=== PATIENT | female | born 1945 | race Caucasian/White ===

== ENCOUNTER 2018-05-30 22:36 | Inpatient (IN) | payer OTHER, MEDICARE ==
[~2018-05-30] VITALS: Ht 162.6 cm; Wt 108.9 kg
[~2018-05-30 22:36] MED LIST: ATORVASTATIN CA40 M1 PO; CLONAZEPAM0.5 M2 PO; CLOPIDOGREL75 M1 PO; ESCITALOPRAM OXA5 MG PO; FENTANYL1 EAC3 TOP; HYDROCODON-ACE1 EAC3 PO; IBUPROFEN600 M1 PO; LEVOTHYROXINE100 MC1 PO; LIDOCAINE1 EACH TOP; METOPROLOL SUCC25 M1 PO; MOBIC15 M1 PO; MUPIROCIN22 GM TOP; NEXIUM40 M1 PO; PAMELOR50 M1 PO; ROBITUSSIN COU237 M1 PO; TOPIRAMATE100 M2 PO; ZITHROMAX250 M2 PO
--- NOTE | 2018-05-30 22:44 | ED MVC/FALL/TRAUMA COMPLAINT ---
History of Present Illness General Chief Complaint: Altered Mental Status Stated Complaint: BIBA AMS ?FALL ?SEIZURE Source: patient Exam Limitations: clinical condition, confusion Vital Signs & Intake/Output Vital Signs & Intake/Output Vital Signs Date Time Temp Pulse Resp B/P B/P Pulse O2 O2 Flow FiO2 Mean Ox Delivery Rate 05/31 0506 98.5 88 22 155/67 98 05/31 0125 99.0 83 20 144/78 96 Room Air 05/30 2315 Room Air 05/30 2239 99.6 96 20 139/82 97 Room Air ED Intake and Output 05/31 0000 05/30 1200 Intake Total Output Total 500 Balance -500 Output, Urine 500 Allergies Coded Allergies: Gadolinium-Containing Contrast Medi (Severe, CONTRAST DYE - ANAPHYLAXIS 02/21/18 ) Iodinated Contrast- Oral and IV Dye (Severe, CONTRAST DYE - ANAPHYLAXIS 02/21/18 ) Penicillins (Severe, ANAPHYLAXIS 04/02/16) Uncoded Allergies: CONTRAST DYE (Severe, ANAPHYLAXIS 04/02/16) Reconcile Medications Atorvastatin Calcium 40 MG TABLET 1 TAB PO DAILY CHOLESTEROL (Reported) Azithromycin (Zithromax) 250 MG TABLET 1 TAB PO DAILY bronchitis Clonazepam 0.5 MG TABLET 1 TAB PO BID ANXIETY (Reported) Clopidogrel Bisulfate (Clopidogrel) 75 MG TABLET 1 TAB PO DAILY BLOOD THINNER (Reported) Escitalopram Oxalate 5 MG TABLET 1 TAB PO DAILY MENTAL HEALTH (Reported) Esomeprazole (Nexium) 40 MG CAPSULE.DR 1 CAP PO DAILY GI (Reported) Fentanyl 50 MCG/HOUR PATCH.TD72 1 PAT TOP Q3D PAIN (Reported) Guaifenesin/Dextromethorphan (Robitussin Cough-Chest Dm Liq) 100 MG-5 MG/5 ML LIQUID 5-10 ML PO Q6P PRN cough Hydrocodone/Acetaminophen (Hydrocodon-Acetaminoph 7.5-325) 7.5 MG-325 MG TABLET 1 TAB PO 4 TIMES/DAY PAIN (Reported) Ibuprofen 600 MG TABLET 1 TAB PO Q6PRN PRN pain with food Levothyroxine Sodium 100 MCG TABLET 1 TAB PO DAILY AC THYROID (Reported) Lidocaine 5 % ADH..PATCH 1 PAT TOP DAILY PAIN (Reported) Metoprolol Succinate 25 MG TAB 1 TAB PO DAILY HEART (Reported) Mupirocin 2 % OINT...G. 1 KEVIN TOP TID UNKNOWN (Reported) apply to affected area(s) Nortriptyline HCl (Pamelor) 50 MG CAPSULE 2 CAP PO QPM UNKNOWN (Reported) Topiramate 100 MG TABLET 1 TAB PO BID MENTAL HEALTH (Reported) Triage Nurses Notes Reviewed? yes Onset: Abrupt Duration: hour(s): Timing: single episode today Severity: moderate Injuries/Fall Location: head, upper extremity, pelvis, lower extremity Method of Injury: fall Loss of Consciousness: unsure Modifying Factors: Improves With: rest. Associated Symptoms: confusion HPI: 72 YO WOMAN presents after a fall. She shares that she was walking from her room to the bathroom and fell. She was unable to get up. She does not recall how long she was on the ground. She believes she passed out. She pressed her emergency response button. The medics arrived and determined that was likely on the ground for approximately 3 hours. She notes pain in her right shoulder, right hip, both knees. She notes no chest pain, shortness of breath, diarrhea, dyspnea. She is otherwise well. Past History Medical History Any Pertinent Medical History? see below for history Neurological: migraine EENT: NONE Cardiovascular: hypertension Respiratory: NONE Gastrointestinal: NONE Hepatic: NONE Renal: NONE Musculoskeletal: disk herniation, spinal stenosis Psychiatric: NONE Endocrine: HYPOTHYROID Blood Disorders: NONE Cancer(s): NONE GENERAL CLAIMS AGENT/Reproductive: NONE Surgical History Surgical History: non-contributory Psychosocial History What is your primary language Bangladeshi Family History Hx Contributory? No Review of Systems Review of Systems Constitutional: Reports: no symptoms. Eyes: Reports: no symptoms. Ears, Nose, Throat, Mouth: Reports: no symptoms. Respiratory: Reports: no symptoms. Cardiovascular: Reports: no symptoms. Gastrointestinal/Abdominal: Reports: no symptoms. Genitourinary: Reports: no symptoms. Musculoskeletal: Reports: no symptoms. Skin: Reports: no symptoms. Neurological/Psychological: Reports: no symptoms. All Other Systems: Reviewed and Negative Physical Exam Physical Exam General Appearance: well developed/nourished, mild distress Head: atraumatic, normal appearance Eyes: Bilateral: normal appearance, PERRL, EOMI. Ears, Nose, Throat, Mouth: dry mucosa Neck: normal inspection, supple, paraspinous muscle tender, no midline tenderness Respiratory: normal breath sounds, chest non-tender, no respiratory distress, quiet respiration, lungs clear Cardiovascular: regular rate/rhythm Gastrointestinal: normal bowel sounds, soft, non-tender Back: normal inspection, no vertebral tenderness Extremities: right shoulder ecchymosis with diffuse tenderness, right hip with ecchymosis, no deformity. diffuse tenderness to palpation. normal ROM, bilateral knees with ecchymosis. mild tenderness to palpation Neurologic/Psych: axox 2... does not know date or president Skin: intact, normal color, warm/dry Core Measures ACS in differential dx? No CVA/TIA Diagnosis No Sepsis Present: No Sepsis Focused Exam Completed? No Progress Differential Diagnosis: C/T/L spine injury, ICH, pelvis injury Plan of Care: Orders Procedure Date/time Status Heart Healthy Diet 05/31 B Active Weight 05/31 0623 Active Vital Signs 05/31 0623 Active Teach/Educate 05/31 06 Active Pain Treatment and Response 05/31 0623 Active Nutritional Intake, Monitor 05/31 0623 Active Isolation 05/31 0623 Active Intake & Output 05/31 0623 Active Patient Care Conference 05/31 0623 Active Activity/Ambulation 05/31 0623 Active Pathway - chart 05/31 0602 Active House Staff 05/31 0602 Active Patient Data 05/31 0602 Active Patient Data 05/31 0528 Active Patient Data 05/31 0458 Active Saline Lock 05/31 0451 Active Misc Message 05/31 0451 Active ED Holding Orders 05/31 0451 Active Admit to inpatient 05/31 0451 Active Vital Signs 05/31 0451 Active Code Status 05/31 0451 Active Straight Cath 05/31 0100 Active Add-on Test (ER Only) 05/31 0050 Active Lab Add-on Test 05/31 UNK Active VTE Mechanical Prophylaxis 05/31 UNK Active Telemetry/Occupational Health Nurse Manager 05/31 UNK Active Intake & Output 05/30 2254 Active URINE DRUGS OF ABUSE 05/30 2254 Complete TOTAL IRON BINDING CAPACITY 05/30 2253 Active PROLACTIN 05/30 2253 Active FOLIC ACID 05/30 2253 Active FERRITIN 05/30 2253 Active SERUM IRON 05/30 2253 Active ETHANOL 05/30 2253 Active VITAMIN B12 05/30 2253 Active URINALYSIS 05/306 Complete TROPONIN LEVEL 05/30 2246 Active LIPASE 05/30 2246 Active HEPATIC FUNCTION PANEL 05/30 2246 Active CREATINE PHOSPHOKINASE 05/30 2246 Active CBC WITHOUT DIFFERENTIAL 05/30 2246 Complete BASIC METABOLIC PANEL 05/30 2246 Active AMYLASE 05/30 2246 Active EKG 05/30 2246 Active Current Medications Sig/Pete Start time Last Medication Dose Stop Time Status Admin Folic Acid 1 MG DAILY 05/31 0900 AC (Folic Acid) Sodium Chloride 1,000 ML Q10H 05/31 06 AC (Normal Saline 0.9%) Laboratory Tests 05/30/184: Urine Opiates Screen > 4000.00 H, Methadone Screen 99, Barbiturate Screen < 60, Ur Phencyclidine Scrn < 6.00, Amphetamines Screen 111, U Benzodiazepines Scrn 169, Urine Cocaine Screen < 50, Urine Cannabis Screen < 5.00, Urine Color YEL, Urine Clarity CLEAR, Urine pH 6.0, Ur Specific Stuart 1.020, Urine Protein NEG, Urine Ketones NEG, Urine Nitrite NEG, Urine Bilirubin NEG, Urine Urobilinogen 0.2, Ur Leukocyte Esterase MOD H, Ur Microscopic SEDIMENT EXAMINED, Urine RBC RARE, Urine WBC 10-15 H, Urine Bacteria MOD H, Hyaline Casts 5-10 H, Granular Casts RARE H, Urine Mucus FEW, Urine Hemoglobin TRACE-INTACT, Urine Glucose NEG 05/30/182252: Anion Gap 9, Estimated GFR 21 L, BUN/Creatinine Ratio 11.7, Glucose 102 H, Calcium 8.6, Iron Pending, TIBC Pending, Ferritin Pending, Total Bilirubin 0.2, Direct Bilirubin 0.2, AST 53 H, ALT 33, Alkaline Phosphatase 112, Creatine Kinase 1079 H, Troponin I < 0.01, Total Protein 5.9 L, Albumin 2.9 L, Amylase < 30 L, Lipase 168, Vitamin B12 Pending, Folate Pending, Prolactin 12.5, CBC w Diff NO MAN DIFF REQ, RBC 3.72 L, MCV 90.0, MCH 29.5, MCHC 32.8 L, RDW 13.3, MPV 7.2 L, Gran % 83.7 H, Lymphocytes % 7.8 L, Monocytes % 7.9, Eosinophils % 0.3, Basophils % 0.3, Absolute Granulocytes 7.5 H, Absolute Lymphocytes 0.7 L, Absolute Monocytes 0.7 H, Absolute Eosinophils 0, Absolute Basophils 0, Serum Alcohol < 10.0 05/30/182247: Prolactin Cancelled Diagnostic Imaging: Viewed by Me: Radiology Read, CT Scan. Discussed w/RAD: Radiology Read, CT Scan. Radiology Impression: PATIENT: CRYSTAL ESCOBAR PRESENT AGE: 72 PATIENT ACCOUNT NO: [id number] : 47 LOCATION: ER ORDERING PHYSICIAN: Casey Umanzor MD SERVICE DATE: 05/30/18 EXAM TYPE: CAT - CT CERV SPINE WO IV CONTRAST; CT HEAD WO IV CONTRAST EXAMINATIONS: CT HEAD WITHOUT CONTRAST AND CT CERVICAL SPINE WITHOUT CONTRAST CLINICAL INFORMATION: Pain after fall. Trauma. COMPARISON: None. TECHNIQUE: Contiguous helical images of the brain were obtained without IV contrast. Contiguous helical images of the cervical spine were obtained without IV contrast. Multiplanar reconstructions were performed. DLP: 909 mGy-cm. FINDINGS: There are no pathologic extra-axial fluid collections. The lateral, third, fourth ventricles are mildly prominent, though age-appropriate and concordant with the appearance of the sulci. There is no evidence for acute intraparenchymal hemorrhage or infarct. There is neither mass nor mass effect. There is no shift of midline structures. The paranasal sinuses and mastoid air cells are clear. There are no osseous lesions. The cervical vertebra are in normal alignment. There is disc height loss at C3/C4, C4/C5, C5/C6 and C6/C7 with anterior osteophyte formation. Disc heights and vertebral heights are otherwise well-preserved. There are no fractures. There is no prevertebral soft tissue swelling. There is no cervical lymphadenopathy. The visualized lung apices are clear. IMPRESSION: No evidence for acute intracranial injury. Age- appropriate appearance of the brain. No evidence for acute injury to the cervical spine. Moderate degenerative change within the cervical spine. DICTATED BY: Bhargav Man MD DATE/TIME DICTATED:05/30/182356 LEATHER COLORER: BEN DATE/TIME TRANSCRIBED:05/30/182356 CONFIDENTIAL, DO NOT COPY WITHOUT APPROPRIATE AUTHORIZATION. <Electronically signed in Other Vendor System> SIGNED BY: Bhargav Man MD 05/31/18 0118, PATIENT: CRYSTAL ESCOBAR PRESENT AGE: 72 PATIENT ACCOUNT NO: [id number] : 47 LOCATION: [facility] ORDERING PHYSICIAN: Casey Umanzor MD SERVICE DATE: 05/30/18 EXAM TYPE: CAT - CT ABD & PELVIS W/O IV CONTRAS; CT CHEST WO IV CONTRAST EXAMINATION: CT CHEST, ABDOMEN AND PELVIS WITHOUT CONTRAST CLINICAL INFORMATION: Pain after fall. Trauma. COMPARISON: None. TECHNIQUE: Contiguous axial thin section helical images of the chest, abdomen and pelvis were performed without oral or IV contrast. The data set was reformatted in the coronal and sagittal planes and reviewed on an independent workstation. DLP: 396 mGy-cm. FINDINGS: The heart is of normal size. There is no pericardial effusion. The pulmonary arteries are prominent measuring 2.7 cm in diameter on the left and 2.5 cm on the right. There is neither mediastinal, hilar nor axillary lymphadenopathy. There are no chest wall masses. Review of lung windows demonstrates that there are neither pleural effusions nor pneumothoraces. There is bronchial wall thickening noted most prominently within the right lower lobe. There is patchy nonspecific groundglass opacification within the posterior basal segment of the right lower lobe. Within the posterior basal segment of the left lower lobe, there is linear atelectasis or scarring. There are no consolidations. There are no pulmonary parenchymal nodules. The liver is of normal size and attenuation without focal lesions nor intrahepatic biliary ductal dilation. A normal gallbladder is identified. There is no wall thickening or discernible pericholecystic fluid. The spleen, pancreas, adrenal glands are unremarkable. Both kidneys are of normal size and attenuation without hydronephrosis. Within the interpole region of the right kidney, there is a 3 mm nonobstructive calculus. Within the lower pole, there is a 2 mm nonobstructive calculus. Within the lower pole of left kidney, there is a 2 mm nonobstructive calculus. There is no abdominal free fluid. There is neither mesenteric nor retroperitoneal lymphadenopathy. There is a dxpva-[id number] sized fat- containing umbilical hernia. There is a moderate amount of stool throughout the colon; otherwise, unremarkable unopacified loops of small and large bowel are identified. There is no pelvic free fluid. The urinary bladder is unremarkable. There is neither pelvic nor inguinal lymphadenopathy. Bone windows: Neither sclerotic nor lytic bone lesions are identified. Right hip prosthesis is intact. No acute fractures are identified. There are healed anterior left eighth and ninth rib fractures. There are bilateral L5 pars defects with grade 1-2 anterolisthesis of L5 in relation to S1. There is moderate disc height loss at L5/S1. There are chronic wedge-shaped compression fractures to T11 and L1. There is also disc height loss at L2/L3. IMPRESSION: No acute fractures. Chronic wedge -shaped thoracic and lumbar spine fractures. Old healed left rib fractures. Right lower lobe bronchial wall thickening and nonspecific posterior basal segment right lower lobe groundglass opacification. This could correspond to an infectious or inflammatory process. It is doubtful that this represents contusion. Recommendation is for a followup chest series to be obtained following treatment and/or resolution of symptoms to assure resolution of this appearance. Moderate amount of stool throughout the colon. Small fat-containing umbilical hernia. DICTATED BY: Bhargav Man MD DATE/TIME DICTATED:05/31/185 LEATHER COLORER:BEN DATE/TIME TRANSCRIBED:05/31/185 CONFIDENTIAL, DO NOT COPY WITHOUT APPROPRIATE AUTHORIZATION. <Electronically signed in Other Vendor System> SIGNED BY: Bhargav Man MD 05/31/18 0018, PATIENT: CRYSTAL ESCOBAR PRESENT AGE: 72 PATIENT ACCOUNT NO: [id number] : 47 LOCATION: [facility] ORDERING PHYSICIAN: Casey Umanzor MD SERVICE DATE: 05/31/18 EXAM TYPE: RAD - XRY-KNEE COMPLETE LEFT; XRY-KNEE COMPLETE RIGHT EXAMINATIONS: BILATERAL KNEES 2 VIEWS CLINICAL INFORMATION: Bilateral knee pain after fall. COMPARISON: None. TECHNIQUE: AP and lateral views of each knee were obtained. FINDINGS: There are no fractures or dislocations. There is no knee joint effusion. There is no significant soft tissue swelling. IMPRESSION: Unremarkable bilateral knee radiographs. DICTATED BY: Bhargav Man MD DATE/TIME DICTATED:05/31/18533 LEATHER COLORER:BEN DATE/TIME TRANSCRIBED:05/31/18533 CONFIDENTIAL, DO NOT COPY WITHOUT APPROPRIATE AUTHORIZATION. <Electronically signed in Other Vendor System> SIGNED BY: Bhargav Man MD 05/31/18 0538, PATIENT: CRYSTAL ESCOBAR PRESENT AGE: 72 PATIENT ACCOUNT NO: [id number] : 47 LOCATION: [facility] ORDERING PHYSICIAN: Casey Umanzor MD SERVICE DATE: 05/31/18 EXAM TYPE: RAD - XRY-HIP 4 VIEWS UNI, RIGHT EXAMINATION: RIGHT HIP 2 VIEWS CLINICAL INFORMATION: Right hip pain after fall. COMPARISON: None TECHNIQUE: AP neutral and frog-leg lateral views of the right hip are provided. FINDINGS: A right hip prosthesis is intact. There are no acute fractures. IMPRESSION: Intact right hip prosthesis. No acute injury demonstrable. DICTATED BY: Bhargav Man MD DATE/TIME DICTATED:05/31/18543 LEATHER COLORER:BEN DATE/TIME TRANSCRIBED:05/31/18543 CONFIDENTIAL, DO NOT COPY WITHOUT APPROPRIATE AUTHORIZATION. <Electronically signed in Other Vendor System> SIGNED BY: Bhargav Man MD 05/31/18547, PATIENT: CRYSTAL ESCOBAR PRESENT AGE: 72 PATIENT ACCOUNT NO: [id number] : 47 LOCATION: [facility] ORDERING PHYSICIAN: Casey Umanzor MD SERVICE DATE: 05/31/18 EXAM TYPE: RAD - XRY-SHOULDER COMPLETE-RIGHT EXAMINATION: SHOULDER 3 VIEWS, RIGHT CLINICAL INFORMATION: Right shoulder pain following injury. COMPARISON: None. TECHNIQUE: AP views of the right shoulder were obtained in internal and external rotation. In addition, a Y view was obtained. FINDINGS: There are no fractures or dislocations. The humeral head is seated within a well-formed glenoid. The AC joint is intact. IMPRESSION: Unremarkable right shoulder radiographs. DICTATED BY: Bhargav Man MD DATE/ TIME DICTATED:05/31/18542 LEATHER COLORER:BEN DATE/TIME TRANSCRIBED: 05/31/18542 CONFIDENTIAL, DO NOT COPY WITHOUT APPROPRIATE AUTHORIZATION. < Electronically signed in Other Vendor System> SIGNED BY: Bhargav Man MD 05/31/18547, PATIENT: CRYSTAL ESCOBAR PRESENT AGE: 72 PATIENT ACCOUNT NO: [id number] : 47 LOCATION: [facility] ORDERING PHYSICIAN : Casey Umanzor MD SERVICE DATE: 05/30/18 EXAM TYPE: RAD - XRY- KNEE COMPLETE LEFT; XRY-KNEE COMPLETE RIGHT EXAMINATIONS: BILATERAL KNEES 2 VIEWS CLINICAL INFORMATION: Bilateral knee pain after fall. COMPARISON: None. TECHNIQUE: AP and lateral views of each knee were obtained. FINDINGS: There are no fractures or dislocations. There is no knee joint effusion. There is no significant soft tissue swelling. IMPRESSION: Unremarkable bilateral knee radiographs. DICTATED BY: Bhargav Man MD DATE/TIME DICTATED:05/31/18540 LEATHER COLORER:BEN DATE/TIME TRANSCRIBED:05/31/18540 CONFIDENTIAL, DO NOT COPY WITHOUT APPROPRIATE AUTHORIZATION. <Electronically signed in Other Vendor System> SIGNED BY: Bhargav Man MD 05/31/18544 Initial ED EKG: sinus... no acute change Departure Departure Disposition: STILL A PATIENT Condition: Stable Clinical Impression Primary Impression: Renal failure Secondary Impressions: Fall, Multiple contusions, Weakness Referrals: Amanda PYLE,Tracey Hui (PCP/Family) Departure Forms: Customer Survey General Discharge Information Admission Note Spoke With: Shakila Hayes MD Documentation of Exam: Documentation of any treatments & extenuating circumstances including Concerns Regarding Discharge (functional status, medication knowledge or non-compliance, living conditions, etc.) that warrant an admission rather than observation: Pt with fall, benign ct scans... creatinine 2.3 almost double her baseline of 1.3... merits iv fluids... PT eval, likely short term rehab placement.
[2018-05-30 23:04] LABS: ABSOLUTE BASOPHIL COUNT 0 /CUMM (0.0-0.2); ABSOLUTE EOSINOPHIL COUNT 0 /CUMM (0.0-0.7); ABSOLUTE GRANULOCYTE CT 7.5 /CUMM (1.4-6.5); ABSOLUTE LYMPH COUNT 0.7 /CUMM (1.2-3.4); ABSOLUTE MONOCYTE COUNT 0.7 /CUMM (0.10-0.60); BASOPHIL % 0.3 % (0.0-2.0); EOSINOPHIL % 0.3 % (0-5); HEMATOCRIT 33.5 % (37-47); MEAN CORPUSCULAR HGB 29.5 PG (27.0-31.0); MEAN CORPUSCULAR HGB CONC 32.8 G/DL (33.0-37.0); MEAN PLATELET VOLUME 7.2 FL (7.4-10.4); PLATELET COUNT 222 /CUMM (130-400); RBC DISTRIBUTION WIDTH 13.3 % (11.5-14.5); RED BLOOD CELL CT 3.72 /CUMM (4.20-5.40); WHITE BLOOD CELL COUNT 8.9 /CUMM (4.8-10.8)
[2018-05-30 23:12] LABS: GRANULOCYTE % 83.7 % (42.2-75.2)
--- NOTE | 2018-05-31 00:18 | CT SCAN REPORT ---
EXAMINATION: CT CHEST, ABDOMEN AND PELVIS WITHOUT CONTRAST CLINICAL INFORMATION: Pain after fall. Trauma. COMPARISON: None. TECHNIQUE: Contiguous axial thin section helical images of the chest, abdomen and pelvis were performed without oral or IV contrast. The data set was reformatted in the coronal and sagittal planes and reviewed on an independent workstation. DLP: 396 mGy-cm. FINDINGS: The heart is of normal size. There is no pericardial effusion. The pulmonary arteries are prominent measuring 2.7 cm in diameter on the left and 2.5 cm on the right. There is neither mediastinal, hilar nor axillary lymphadenopathy. There are no chest wall masses. Review of lung windows demonstrates that there are neither pleural effusions nor pneumothoraces. There is bronchial wall thickening noted most prominently within the right lower lobe. There is patchy nonspecific groundglass opacification within the posterior basal segment of the right lower lobe. Within the posterior basal segment of the left lower lobe, there is linear atelectasis or scarring. There are no consolidations. There are no pulmonary parenchymal nodules. The liver is of normal size and attenuation without focal lesions nor intrahepatic biliary ductal dilation. A normal gallbladder is identified. There is no wall thickening or discernible pericholecystic fluid. The spleen, pancreas, adrenal glands are unremarkable. Both kidneys are of normal size and attenuation without hydronephrosis. Within the interpole region of the right kidney, there is a 3 mm nonobstructive calculus. Within the lower pole, there is a 2 mm nonobstructive calculus. Within the lower pole of left kidney, there is a 2 mm nonobstructive calculus. There is no abdominal free fluid. There is neither mesenteric nor retroperitoneal lymphadenopathy. There is a kzjkr-[id number]-[id number] sized fat-containing umbilical hernia. There is a moderate amount of stool throughout the colon; otherwise, unremarkable unopacified loops of small and large bowel are identified. There is no pelvic free fluid. The urinary bladder is unremarkable. There is neither pelvic nor inguinal lymphadenopathy. Bone windows: Neither sclerotic nor lytic bone lesions are identified. Right hip prosthesis is intact. No acute fractures are identified. There are healed anterior left eighth and ninth rib fractures. There are bilateral L5 pars defects with grade 1-2 anterolisthesis of L5 in relation to S1. There is moderate disc height loss at L5/S1. There are chronic wedge-shaped compression fractures to T11 and L1. There is also disc height loss at L2/L3. IMPRESSION: No acute fractures. Chronic wedge-shaped thoracic and lumbar spine fractures. Old healed left rib fractures. Right lower lobe bronchial wall thickening and nonspecific posterior basal segment right lower lobe groundglass opacification. This could correspond to an infectious or inflammatory process. It is doubtful that this represents contusion. Recommendation is for a followup chest series to be obtained following treatment and/or resolution of symptoms to assure resolution of this appearance. Moderate amount of stool throughout the colon. Small fat-containing umbilical hernia.
--- NOTE | 2018-05-31 01:18 | CT SCAN REPORT ---
EXAMINATIONS: CT HEAD WITHOUT CONTRAST AND CT CERVICAL SPINE WITHOUT CONTRAST CLINICAL INFORMATION: Pain after fall. Trauma. COMPARISON: None. TECHNIQUE: Contiguous helical images of the brain were obtained without IV contrast. Contiguous helical images of the cervical spine were obtained without IV contrast. Multiplanar reconstructions were performed. DLP: 909 mGy-cm. FINDINGS: There are no pathologic extra-axial fluid collections. The lateral, third, fourth ventricles are mildly prominent, though age-appropriate and concordant with the appearance of the sulci. There is no evidence for acute intraparenchymal hemorrhage or infarct. There is neither mass nor mass effect. There is no shift of midline structures. The paranasal sinuses and mastoid air cells are clear. There are no osseous lesions. The cervical vertebra are in normal alignment. There is disc height loss at C3/C4, C4/C5, C5/C6 and C6/C7 with anterior osteophyte formation. Disc heights and vertebral heights are otherwise well-preserved. There are no fractures. There is no prevertebral soft tissue swelling. There is no cervical lymphadenopathy. The visualized lung apices are clear. IMPRESSION: No evidence for acute intracranial injury. Age-appropriate appearance of the brain. No evidence for acute injury to the cervical spine. Moderate degenerative change within the cervical spine.
--- NOTE | 2018-05-31 05:38 | RADIOLOGY REPORT ---
EXAMINATIONS: BILATERAL KNEES 2 VIEWS CLINICAL INFORMATION: Bilateral knee pain after fall. COMPARISON: None. TECHNIQUE: AP and lateral views of each knee were obtained. FINDINGS: There are no fractures or dislocations. There is no knee joint effusion. There is no significant soft tissue swelling. IMPRESSION: Unremarkable bilateral knee radiographs.
--- NOTE | 2018-05-31 05:48 | RADIOLOGY REPORT ---
EXAMINATION: SHOULDER 3 VIEWS, RIGHT CLINICAL INFORMATION: Right shoulder pain following injury. COMPARISON: None. TECHNIQUE: AP views of the right shoulder were obtained in internal and external rotation. In addition, a Y view was obtained. FINDINGS: There are no fractures or dislocations. The humeral head is seated within a well-formed glenoid. The AC joint is intact. IMPRESSION: Unremarkable right shoulder radiographs.
--- NOTE | 2018-05-31 05:48 | RADIOLOGY REPORT ---
EXAMINATION: RIGHT HIP 2 VIEWS CLINICAL INFORMATION: Right hip pain after fall. COMPARISON: None TECHNIQUE: AP neutral and frog-leg lateral views of the right hip are provided. FINDINGS: A right hip prosthesis is intact. There are no acute fractures. IMPRESSION: Intact right hip prosthesis. No acute injury demonstrable.
--- NOTE | 2018-05-31 05:49 | History & Physical ---
Iman PYLE,[facility] 05/31/18 0549: General Information and HPI History of Present Illness: Ms. Maki is a 72-year-old female with past medical history of migraine, hypertension, disc herniation, spinal stenosis, hypothyroidism who presents after a fall. Patient is a very poor historian and does not remember much. She thinks she was going to the bathroom and her feet got caught but she does not really remember. She did activate life alert and that is when she came to the emergency room. Patient is not able to recall any prodromal symptoms. She does not think she was confused. She is complaining of anxiety, right elbow pain, and some dysuria. Currently, she has no chest pain, shortness of breath, or abdominal pain. She lives alone and walks without a walker. She denies smoking , alcohol use, recreational drug use. 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 EENTM: Reports: no symptoms. Cardiovascular: Reports: no symptoms. Respiratory: Reports: no symptoms. GI: Reports: no symptoms. Genitourinary: Reports: no symptoms. Musculoskeletal: Reports: no symptoms. Skin: Reports: no symptoms. Neurological/Psychological: Reports: see HPI. Hematologic/Endocrine: Reports: no symptoms. Immunologic/Allergic: Reports: no symptoms. All Other Systems: Reviewed and Negative Exam & Diagnostic Data Last 24 Hrs of Vital Signs/I&O Vital Signs Date Time Temp Pulse Resp B/P B/P Pulse O2 O2 Flow FiO2 Mean Ox Delivery Rate 05/31 0506 98.5 88 22 155/67 98 05/31 0125 99.0 83 20 144/78 96 Room Air 05/30 2315 Room Air 05/30 2239 99.6 96 20 139/82 97 Room Air Intake & Output 05/31 0800 05/31 0000 05/30 1600 Intake Total Output Total 500 Balance -500 Output, Urine 500 Physical Exam General Appearance Alert, Oriented X3, Cooperative, No Acute Distress, thin HEENT dry mouth with pale apearance Cardiovascular Normal S1, Normal S2, tachy Lungs Clear to Auscultation Abdomen Normal Bowel Sounds, Soft, No Tenderness Neurological Strength at 5/5 X4 Ext, Normal Tone, Sensation Intact, Cranial Nerves 3-12 NL Extremities No Edema, Normal Pulses, No Tenderness/Swelling Last 24 Hrs of Labs/Juve: Laboratory Tests 05/30/18 2254: Urine Opiates Screen > 4000.00 H, Methadone Screen 99, Barbiturate Screen < 60, Ur Phencyclidine Scrn < 6.00, Amphetamines Screen 111, U Benzodiazepines Scrn 169, Urine Cocaine Screen < 50, Urine Cannabis Screen < 5.00, Urine Color YEL, Urine Clarity CLEAR, Urine pH 6.0, Ur Specific Corbett 1.020, Urine Protein NEG, Urine Ketones NEG, Urine Nitrite NEG, Urine Bilirubin NEG, Urine Urobilinogen 0.2, Ur Leukocyte Esterase MOD H, Ur Microscopic SEDIMENT EXAMINED, Urine RBC RARE, Urine WBC 10-15 H, Urine Bacteria MOD H, Hyaline Casts 5-10 H, Granular Casts RARE H, Urine Mucus FEW, Urine Hemoglobin TRACE-INTACT, Urine Glucose NEG 05/30/18 2253: Anion Gap 9, Estimated GFR 21 L, BUN/Creatinine Ratio 11.7, Glucose 102 H, Calcium 8.6, Total Bilirubin 0.2, Direct Bilirubin 0.2, AST 53 H, ALT 33, Alkaline Phosphatase 112, Creatine Kinase 1079 H, Troponin I < 0.01, Total Protein 5.9 L, Albumin 2.9 L, Amylase < 30 L, Lipase 168, Prolactin 12.5, CBC w Diff NO MAN DIFF REQ, RBC 3.72 L, MCV 90.0, MCH 29.5, MCHC 32.8 L, RDW 13.3, MPV 7.2 L, Gran % 83.7 H, Lymphocytes % 7.8 L, Monocytes % 7.9, Eosinophils % 0.3, Basophils % 0.3, Absolute Granulocytes 7.5 H, Absolute Lymphocytes 0.7 L, Absolute Monocytes 0.7 H, Absolute Eosinophils 0, Absolute Basophils 0, Serum Alcohol < 10.0 05/30/18 2248: Prolactin Cancelled Assessment/Plan Assessment: Ms. Maki is a 72-year-old female with past medical history of migraine, hypertension, disc herniation, spinal stenosis, hypothyroidism who presents after a fall. On presentation, vital signs were T 99.6, HR 96, RR 20, BP 139/82, saturating 97 % on room air. Laboratories are significant for hemoglobin 11.0, MCV 90, BUN 27 , creatinine 2.3 (baseline 1.3) AST at 53, CK 1079, troponin less than 0.01. U tox was positive for opiates. Urinalysis shows 1015 WBCs and moderate leukocyte esterase. CT chest/abdomen/pelvis shows a right lower lobe opacification. CT head/spine was negative for any acute processes. She will be admitted to telemetry and treated for the following problems: 1. Fall, possible syncope 2. Normocytic anemia 3. Acute kidney injury 4. Urinary tract infection #Fall, possible syncope: Patient is a very poor historian so it is unclear what occurred. It is possible that she passed out. She does have what appears to be a urinary tract infection which may have contributed. She may have also been dehydrated. Other possible causes include cardiac versus seizure. -Telemetry monitoring -Ciprofloxacin given penicillin allergy -IV fluid hydration -Monitor urine output -Consider renal ultrasound -EKG/tropx2 #Normocytic anemia: Patient appears pale though the anemia is not terrible. -Iron studies, folate, B12 -Guiaic #Chronic medical problems: -Patient unable to recall her home medications. Please reconcile her medications with the pharmacy in the morning. DVT prophylaxis with heparin Heart healthy diet Full code As Ranked By This Provider Problem List: 1. Fall Core Measures/Misc (08/18) Acute Coronary Syndrome ACS Diagnosis: No Congestive Heart Failure Congestive Heart Failure Diagnosis No Cerebrovascular Accident CVA/TIA Diagnosis: No VTE (View Protocol) VTE Risk Factors Age>40 No Mechanical VTE Prophylaxis d/t N/A MechProphylax Ordered No VTE Pharm Prophylaxis d/t NA PharmProphylax ordered Sepsis (View protocol) Sepsis Present: No If YES complete Sepsis Event Note If YES complete Sepsis Event Note Vivi PYLE,[facility] 05/31/18 0649: General Information and HPI Allergies/Medications Allergies: Coded Allergies: Gadolinium-Containing Contrast Medi (Severe, CONTRAST DYE - ANAPHYLAXIS 02/21/18 ) Iodinated Contrast- Oral and IV Dye (Severe, CONTRAST DYE - ANAPHYLAXIS 02/21/18 ) Penicillins (Severe, ANAPHYLAXIS 04/02/16) shellfish derived (Mild, RASH 06/03/18) rash Uncoded Allergies: CONTRAST DYE (Severe, ANAPHYLAXIS 04/02/16) Home Med list Atorvastatin Calcium 40 MG TABLET 1 TAB PO DAILY CHOLESTEROL (Reported) Clonazepam 0.25 MG TAB.RAPDIS 1 TAB PO TID ANXIETY Clopidogrel Bisulfate (Clopidogrel) 75 MG TABLET 1 TAB PO DAILY BLOOD THINNER (Reported) Escitalopram Oxalate 5 MG TABLET 1 TAB PO DAILY MENTAL HEALTH (Reported) Esomeprazole (Nexium) 40 MG CAPSULE.DR 1 CAP PO DAILY GI (Reported) Fentanyl (Duragesic) 25 MCG/HOUR PATCH.TD72 1 PAT TOP Q3D PRN PAIN Ferrous Sulfate 325 MG (65 MG IRON) TABLET 1 TAB PO DAILY ANEMIA Guaifenesin/Dextromethorphan (Robitussin Cough-Chest Dm Liq) 100 MG-5 MG/5 ML LIQUID 5-10 ML PO Q6P PRN cough Hydrocodone/Acetaminophen (Hydrocodon-Acetaminoph 7.5-325) 7.5 MG-325 MG TABLET 1 TAB PO BID PRN BACK PAIN Levothyroxine Sodium (Synthroid) 88 MCG TABLET 1 TAB PO DAILY HYPOTHYROID Lidocaine 5 % ADH..PATCH 1 PAT TOP DAILY PAIN (Reported) Metoprolol Succinate 25 MG TAB 1 TAB PO DAILY HEART (Reported) Mupirocin 2 % OINT...G. 1 KEVIN TOP TID UNKNOWN (Reported) apply to affected area(s) Nitrofurantoin Macrocrystal (Nitrofurantoin) 100 MG CAPSULE 1 CAP PO BID UTI Nortriptyline HCl (Pamelor) 50 MG CAPSULE 2 CAP PO QPM UNKNOWN (Reported) Topiramate 100 MG TABLET 1 TAB PO BID MENTAL HEALTH (Reported) Core Measures/Misc (08/18) Sepsis (View protocol) If YES complete Sepsis Event Note If YES complete Sepsis Event Note Resident Review Statement Resident Statement: examined this patient, discussed with operations intern Other Findings: H: Ms. Maki is a 72-year-old female with past medical history of hypothyroidism , hypertension, hyperlipidemia coronary artery disease/ peripheral vascular disease [on Plavix] and chronic back pain who presented to the emergency department on 05/31/2018 after a fall. It was reported that the patient was brought in after activating her lifeline. During the time of our clinical interaction, the patient was a poor historian and was unable to articulate what exactly happened. She reports that she had gone to sleep last evening however woke up to use the restroom. After using the restroom she had a syncopal episode. She is unsure whether she lost consciousness or this was a mechanical fall. Patient states that she spent a considerable amout of time on the floor before activating lifeline. She lives alone at home and does not appear like she has much support with no kids or significant other spouse. States that she walks independantly and has to use a walked intermittently. Patient's primary care physician is Dr. Patel. Patient did not know medication she takes although does note that she gets them filled at [facility]. R: On review of systems the patient denied any fever, chills, nausea, vomiting. She did endorse some dysuria. Exam: T. 99.6, pulse rate 96, respirations 20, blood pressure 139/82, saturating 97% on room air. General Appearance: well developed/nourished, mild distress Head: atraumatic, normal appearance Eyes: Bilateral: normal appearance, PERRL, EOMI. Ears, Nose, Throat, Mouth Dry mucosa Neck: normal inspection, supple, paraspinous muscle tender, no midline tenderness Respiratory: normal breath sounds, chest non-tender, no respiratory distress, quiet respiration, lungs clear Cardiovascular: regular rate/rhythm Gastrointestinal: normal bowel sounds, soft, non-tender Back: normal inspection, no vertebral tenderness Extremities: right shoulder ecchymosis with diffuse tenderness, right hip with ecchymosis, no deformity. diffuse tenderness to palpation of both hips laterally. normal ROM, bilateral knees with ecchymosis. mild tenderness to palpation Neurologic/Psych: Alert to place and person Skin: intact, normal color, warm/dry Labs: As above notable for creatinine of 2.3, elevated creatinine kinase of 1079. Urine positive for moderate leukocyte esterase and the presence of bacteria and WBC Imaging: As Above A/P Ms. Maki is a 72-year-old female with past medical history of hypothyroidism, hypertension, hyperlipidemia coronary artery disease/ peripheral vascular disease [on Plavix] and chronic back pain who presented to the emergency department on 05/31/2018 after a fall. Given the vague complaints he would be prudent to admit her to the telemetry service for close monitoring to rule out any cardiogenic causes of syncope. #Syncope likely mechanical but rule out cardiogenic causes. #Query UTI symptom being syncope. #Rule out ACS #Generalized deconditioning Admit patient to telemetry service. Telemetry monitoring. Obtain 1 more troponin and EKG. May consider cardiology consultation Echocardiogram. Orthostatic Vital Signs Monitor ins and outs and daily weights. If creatinine remains elevated obtain a renal ultrasound to rule out hydronephrosis. Follow off antibiotics. Follow-up on urine culture. Maintain electrolyte set potassium greater than 4 and magnesium greater than 2. Thyroid studies. Physical therapy consultation. Occupational therapy consultation, Patient may benefit from social work/psych consultation. Heart healthy diet. DVT prophylaxis will be maintained on Sub Q Heparin. Full code. *Please reconcile the patient's medication with [facility]. Alexys PYLE,[facility] 05/31/18 0951: Core Measures/Misc (08/18) Sepsis (View protocol) If YES complete Sepsis Event Note If YES complete Sepsis Event Note Attending MD Review Statement Attending Statement Attending MD Statement: examined this patient, discuss w/resident/PA/FOREST FIRE FIGHTER, agreed w/resident/PA/FOREST FIRE FIGHTER, reviewed EMR data (avail), discussed with nursing, discussed with case mgmt, reviewed images, amended to note Attending Assessment/Plan: 72 y/o F with pmh sig for migraine, hypertension, disc herniation, spinal stenosis, hypothyroidism brought in by ambulance after a fall. Patient says that she was about to go downstairs. She apparently fell in her hallway which is on the upper level. She doesn't remember much but when she woke up she found herself on the floor. She stated there for some time and finally alerted [facility]. EMS came and brought her to the emergency room. She does have some chronic back pain. She denies any chest pain, dizziness. She does mention that she had vomiting from last couple of days and was not able to eat or drink much. She denies having any diarrhea. She currently denies feeling nauseous or having any abdominal pain. She denies any urinary complaints, no dysuria. She did feel warm last couple of days. She is on chronic narcotics 2/2 to ch back pain. Vital Signs Date Time Temp Pulse Resp B/P B/P Pulse O2 O2 Flow FiO2 Mean Ox Delivery Rate 05/31 0939 100 138/76 05/31 0703 98.2 102 16 156/94 97 Room Air 05/31 0623 Room Air 05/31 0506 98.5 88 22 155/67 98 05/31 0125 99.0 83 20 144/78 96 Room Air 05/30 2315 Room Air 05/30 2239 99.6 96 20 139/82 97 Room Air on exam; aox3, nad. cv; s1,s2, rrr resp; clear abd; soft, nt, bs+ ext; no edema Laboratory Tests 05/31 05/30 0810 2254 Chemistry Sodium (137 - 145 mmol/L) 139 Potassium (3.5 - 5.1 mmol/L) 3.9 Chloride (98 - 107 mmol/L) 107 Carbon Dioxide (22 - 30 mmol/L) 24 Anion Gap (5 - 16) 8 BUN (7 - 17 mg/dL) 26 H Creatinine (0.5 - 1.0 mg/dL) 1.7 H Estimated GFR (>60 ml/min) 30 L BUN/Creatinine Ratio (7 - 25 %) 15.3 Magnesium (1.6 - 2.3 mg/dL) 1.8 Creatine Kinase (30 - 135 U/L) 995 H Troponin I (< 0.11 ng/ml) < 0.01 Prealbumin (17.6 - 36.0 mg/dL) 10.5 L TSH (0.270 - 4.200 uIU/mL) < 0.015 L Free T4 (0.78 - 2.44 ng/dL) 1.82 Urines Urine Color (YEL,AMB,STR) YEL Urine Clarity (CLEAR) CLEAR Urine pH (5.0 - 8.0) 6.0 Ur Specific Corbett (1.001 - 1.035) 1.020 Urine Protein (NEG,<30 MG/DL) NEG Urine Ketones (NEG) NEG Urine Nitrite (NEG) NEG Urine Bilirubin (NEG) NEG Urine Urobilinogen (0.1 - 1.0 EU/dl) 0.2 Ur Leukocyte Esterase (NEG) MOD H Ur Microscopic SEDIMENT EXAMINED Urine RBC (0 - 5 /HPF) RARE Urine WBC (0 - 2 /HPF) 10-15 H Urine Bacteria (NEG/NONE) MOD H Hyaline Casts (0/LPF) 5-10 H Granular Casts (NONE /LPF) RARE H Urine Mucus (FEW,NONE) FEW Urine Hemoglobin (NEG) TRACE-INTACT Urine Glucose (N MG/DL) NEG 05/304 2253 Chemistry Sodium (137 - 145 mmol/L) 138 Potassium (3.5 - 5.1 mmol/L) 4.1 Chloride (98 - 107 mmol/L) 103 Carbon Dioxide (22 - 30 mmol/L) 26 Anion Gap (5 - 16) 9 BUN (7 - 17 mg/dL) 27 H Creatinine (0.5 - 1.0 mg/dL) 2.3 H Estimated GFR (>60 ml/min) 21 L BUN/Creatinine Ratio (7 - 25 %) 11.7 Glucose (65 - 99 mg/dL) 102 H Calcium (8.4 - 10.2 mg/dL) 8.6 Iron (37 - 170 ug/dL) 20 L TIBC (265 - 497 ug/dL) 199 L Ferritin (11.1 - 264 ng/mL) 292.0 H Total Bilirubin (0.2 - 1.3 mg/dL) 0.2 Direct Bilirubin (< 0.4 mg/dL) 0.2 AST (14 - 36 U/L) 53 H ALT (9 - 52 U/L) 33 Alkaline Phosphatase (<127 U/L) 112 Creatine Kinase (30 - 135 U/L) 1079 H Troponin I (< 0.11 ng/ml) < 0.01 Total Protein (6.3 - 8.2 g/dL) 5.9 L Albumin (3.5 - 5.0 g/dL) 2.9 L Amylase (30 - 110 U/L) < 30 L Lipase (23 - 300 U/L) 168 Vitamin B12 (239 - 931 pg/mL) 914 Folate (2.76 - 20.0 ng/mL) 16.6 Prolactin (3.0 - 18.6 ng/mL) 12.5 Hematology CBC w Diff NO MAN DIFF REQ WBC (4.8 - 10.8 /CUMM) 8.9 RBC (4.20 - 5.40 /CUMM) 3.72 L Hgb (12.0 - 16.0 G/DL) 11.0 L Hct (37 - 47 %) 33.5 L MCV (81.0 - 99.0 FL) 90.0 MCH (27.0 - 31.0 PG) 29.5 MCHC (33.0 - 37.0 G/DL) 32.8 L RDW (11.5 - 14.5 %) 13.3 Plt Count (130 - 400 /CUMM) 222 MPV (7.4 - 10.4 FL) 7.2 L Gran % (42.2 - 75.2 %) 83.7 H Lymphocytes % (20.5 - 51.1 %) 7.8 L Monocytes % (1.7 - 9.3 %) 7.9 Eosinophils % (0 - 5 %) 0.3 Basophils % (0.0 - 2.0 %) 0.3 Absolute Granulocytes (1.4 - 6.5 /CUMM) 7.5 H Absolute Lymphocytes (1.2 - 3.4 /CUMM) 0.7 L Absolute Monocytes (0.10 - 0.60 /CUMM) 0.7 H Absolute Eosinophils (0.0 - 0.7 /CUMM) 0 Absolute Basophils (0.0 - 0.2 /CUMM) 0 Toxicology Urine Opiates Screen (>2000 NG/ML) > 4000.00 H Methadone Screen (>300 NG/ML) 99 Barbiturate Screen (>200 NG/ML) < 60 Ur Phencyclidine Scrn (>25 NG/ML) < 6.00 Amphetamines Screen (>1000 NG/ML) 111 U Benzodiazepines Scrn (>200 NG/ML) 169 Urine Cocaine Screen (>300 NG/ML) < 50 Urine Cannabis Screen (>50 NG/ML) < 5.00 Serum Alcohol (<10 MG/DL) < 10.0 Urines Ur Random Creatinine (mg/dL) 109.5 Ur Random Sodium (30 - 90 mmol/L) 44 Ur Random Potassium (mmol/L) 35.0 Fraction Sodium Excret (<1% %) 0.7 05/30 2248 Chemistry Prolactin Cancelled All imaging reviewed. No acute fx. Head CT and abd CT neg for any acute finding. EKG: NSR. QTC on this am EKG was 480. A/P: 72 y/o F with pmh sig for migraine, hypertension, disc herniation, spinal stenosis on chronic opiates, hypothyroidism admitted with a fall with possible syncope. Patient also has acute kidney injury secondary to prerenal azotemia from dehydration. This was likely secondary to vomiting which she had last couple of days. Patient is admitted to telemetry. Please check orthostatic vital signs. If she is orthostatic and she should be continued on IV hydration. Patient will be monitored on telemetry. We will obtain echocardiogram. She does have acute kidney injury likely secondary to prerenal azotemia from dehydration which likely happened secondary to vomiting. We'll monitor her creatinine as well as her CK levels. she did have rhabdo with high CK levels. In order to avoid withdrawal, patient will be continued on narcotics although at a lower dose. She also takes Klonopin and should be continued on the lower dose to avoid withdrawal. Avoid NSAIDS and other nephrotoxics. DVT px; Hep sq. Full code.
[2018-05-31 07:03] VITALS: BP 156/94
[2018-05-31 09:39] VITALS: BP 138/76
[2018-05-31 09:55] VITALS: BP 130/82
[2018-05-31 10:00] VITALS: BP 130/82
--- NOTE | 2018-05-31 10:00 | Event Note ---
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 Around 9:45 AM rapid response was called after an unwitnessed fall. Patient was in rest room, trying to get up from the commode and she fell on the floor all of a sudden. Denies any dizziness, short of breath, palpitations or chest pain or lightheadedness. She didn't loose her consciousness. Denies hitting of her head. However she landed on the floor on her buttock. Patient reported right hip pain and right elbow pain after the event. Vitals were stable. Afebrile, heart rate 65, respiratory rate 18, blood pressure 130/70, saturating at 98 on room air. On exam S1 and S2 regular, lung sounds clear, abdomen soft, nontender. Bruise was noticed right elbow and right hip. Range of motion was good. No tenderness on palpation. Plan Continue telemetry monitoring Will get stat right elbow x-ray and right hip x-ray Follow-up orthostatic vitals Will continue IV fluids Disussed with attending Dr. Vasquez
--- NOTE | 2018-05-31 12:58 | RADIOLOGY REPORT ---
EXAMINATION: XR HIP, RIGHT XR ELBOW, RIGHT CLINICAL INFORMATION: 72-year-old female with right hip and elbow pain, status post fall. COMPARISON: Right hip done on 05/31/2018. TECHNIQUE: Portable frontal view of the right hip and portable 2 views of the right elbow were obtained. FINDINGS: Right Hip: Single frontal view of the right hip shows intact prosthesis. There is no periprosthetic radiolucency present. Mild diffuse osteopenia is noted involving all the visualized bones. No significant change. Please note that the evaluation is limited since there is no lateral view available. Right Elbow: There is anterior fat pad visualized. No definite posterior fat pad identified. On these limited images, there is no displaced radial neck fracture present. However, dedicated radiographs of the radial neck is recommended. IMPRESSION: 1. Limited frontal only view of the right hip shows intact right hip prosthesis, unchanged since 05/31/2018. 2. Portable limited radiographs of the right elbow show presence of anterior fat pad only and no definite displaced radial neck fracture. Dedicated radiographs of the radial neck are recommended.
[2018-05-31 14:42] VITALS: BP 130/72
--- NOTE | 2018-05-31 16:12 | RADIOLOGY REPORT ---
EXAMINATION: XR ELBOW, RIGHT CLINICAL INFORMATION: Status post fall, right elbow pain. Portable radiographs of the right elbow done earlier today showed anterior fat pad. Dedicated radial neck view was recommended at that time. COMPARISON: Elbow radiographs done earlier today. TECHNIQUE: Dedicated radial head, neck views were obtained in frontal as well as lateral projection. In addition, a lateral radiograph of the right elbow was also performed. FINDINGS: The bony alignment is intact. The cortices are intact. Mild diffuse osteopenia is present. There is no evidence of any fracture or dislocation or subluxation present. There is no joint effusion present. IMPRESSION: No radiographic evidence of any fracture dislocation or joint effusion present. Specifically, the radial head and neck appear intact.
[2018-05-31 22:18] VITALS: BP 142/80
[2018-06-01 06:44] VITALS: BP 186/106
[2018-06-01 06:46] VITALS: BP 158/90
--- NOTE | 2018-06-01 08:10 | PN- Housestaff ---
Crystal Jackson 06/01/18 0810: Subjective Follow-up For: Fall - possible syncope Subjective: Patient seen and examined at bedside this morning. Patient is concerned about not taking her night time medications for sleep but agrees that melatonin has helped. Patient had an elevated early blood pressure of 186/106 which was resolved with metoprolol. Most recent bp is 158/90. Patient denies any chest pain, shortness of breath, headaches, nausea or vomiting. As per her care management assistant, she has been able to get out of bed with no acute distress. Patient tolerating diet. Review of Systems Constitutional: Denies: see HPI. EENTM: Denies: no symptoms. Objective Last 24 Hrs of Vital Signs/I&O Vital Signs Date Time Temp Pulse Resp B/P B/P Pulse O2 O2 Flow FiO2 Mean Ox Delivery Rate 06/01 0646 158/90 06/01 0644 98.7 81 18 186/106 93 Room Air 06/01 0602 88 186/106 05/31 2218 98.2 82 18 142/80 97 Room Air 05/31 1442 99.2 95 20 130/72 96 Room Air 05/31 1123 130/82 05/31 1000 98.2 112 20 130/82 05/31 0955 98.2 112 20 130/82 97 Room Air 05/31 0939 100 138/76 Intake & Output 06/01 1600 06/01 0800 06/01 0000 Intake Total 1460 420 Output Total 400 Balance 1460 20 Intake, IV 800 300 Intake, Oral 660 120 Output, Urine 400 Patient 102 lb Weight Weight Bed scale Measurement Method Physical Exam General Appearance: Alert, Oriented X3, Cooperative, No Acute Distress Cardiovascular: Regular Rate, Normal S1, Normal S2 Lungs: Clear to Auscultation Abdomen: Normal Bowel Sounds, Soft, No Tenderness Extremities: No Edema, No Tenderness/Swelling Current Medications: Current Medications Sig/Pete Start time Last Medication Dose Route Stop Time Status Admin Acetaminophen 650 MG Q6-PRN PRN 05/31 2000 AC 05/31 PO 2011 Atorvastatin Calcium 40 MG DAILY 05/31 900 AC 05/31 PO 1123 Clonazepam 0.25 MG BID 05/31 1124 AC 05/31 PO 06/07 1123 2011 Clopidogrel Bisulfate 75 MG DAILY 05/31 09 AC 05/31 PO 1123 Fentanyl Citrate 25 MCG Q72H 05/31 1130 AC 05/31 TOP 1339 Folic Acid 1 MG DAILY 05/31 0900 AC 05/31 PO 1122 Heparin Sodium 5,000 UNIT Q8H 05/31 1930 AC 06/01 (Porcine) SC 0339 Heparin Sodium 5,000 UNIT Q8 05/31 0930 DC 05/31 (Porcine) SC 1123 Levothyroxine Sodium 0.1 MG DAILY AC 05/31 0700 AC 06/01 PO 0547 Lidocaine 1 PAT DAILY@2100 05/31 2100 AC 05/31 EXT 2012 Melatonin 5 MG ONCE ONE 06/01 0130 DC 06/01 PO 06/01 0131 0157 Metoprolol Succinate 25 MG DAILY 05/31 0900 AC 06/01 PO 0602 Potassium Chloride 40 MEQ ONCE ONE 06/01 09 DC PO 06/01 09 Sodium Chloride 1,000 ML Q10H 05/31 0600 DC 05/31 IV 2231 Last 24 Hrs of Lab/Juve Results Last 24 Hrs of Labs/Mics: Laboratory Tests 06/01/18 0629: Anion Gap 6, Estimated GFR 49 L, BUN/Creatinine Ratio 17.3, Creatine Kinase 606 H Microbiology 06/01 913 URINE ROUT: Urine Culture - ORD Assessment/Plan Assessment: Ms. Maki is a 72-year-old female with pmh of hypothyroidism, hypertension, hyperlipidemia coronary artery disease/ peripheral vascular disease [on Plavix] and chronic back pain who presented to the emergency department on 05/31/2018 after a fall. Patient admitted to the the telemetry service for monitoring to rule out cardiogenic cause of syncope. Syncope -rule out possible cardiogenic cause -follow up Echo (ordered May 31) -quality assurance monitor chassis BLAINE -patients creatinine trending down to 1.1 -fluids have been discontinued Hypertension -early hypertensive episode (186/106) brought down with medication 158/90 -fluids d/c -f/u orthostats Dysuria -patient currently denies any significant pain on urination; afebrile; no leukocytosis -f/u urine culture Heart Healthy Diet DCT Prophylaxis Heparin SubQ Code Status: Full Code Problem List: 1. Weakness 2. Fall 3. Renal failure Pain Ratin Pain Location: right hip Pain Goal: Pain 4 or less Pain Plan: As per pain pathway Tomorrow's Labs & Rationales: CBC BEP Urine Cx Alexys PYLE,Aileen 06/01/18 1124: Attending MD Review Statement Attending Statement Attending MD Statement: examined this patient, discuss w/resident/PA/SUPERVISOR PLATING AND POINT ASSEMBLY, agreed w/resident/PA/SUPERVISOR PLATING AND POINT ASSEMBLY, reviewed EMR data (avail), discussed with nursing, discussed with case mgmt, reviewed images, amended to note Attending Assessment/Plan: Patient seen and examined, feeling overall better. The creatinine has improved. No acute events overnight on quality assurance monitor chassis. Vital Signs Date Time Temp Pulse Resp B/P B/P Pulse O2 O2 Flow FiO2 Mean Ox Delivery Rate 06/01 646 158/90 06/01 0644 98.7 81 18 186/106 93 Room Air 06/01 0602 88 186/106 05/31 2218 98.2 82 18 142/80 97 Room Air 05/31 1442 99.2 95 20 130/72 96 Room Air on exam; aox3, nad. cv; s1,s2, rrr resp; clear abd; soft, nt, bs+ ext; no edema Laboratory Tests 06/01 629 Chemistry Sodium (137 - 145 mmol/L) 138 Potassium (3.5 - 5.1 mmol/L) 3.4 L Chloride (98 - 107 mmol/L) 107 Carbon Dioxide (22 - 30 mmol/L) 24 Anion Gap (5 - 16) 6 BUN (7 - 17 mg/dL) 19 H Creatinine (0.5 - 1.0 mg/dL) 1.1 H Estimated GFR (>60 ml/min) 49 L BUN/Creatinine Ratio (7 - 25 %) 17.3 Creatine Kinase (30 - 135 U/L) 606 H A/P; 72 y/o F with pmh sig for migraine, hypertension, disc herniation, spinal stenosis on chronic opiates, hypothyroidism admitted with a fall with possible syncope. Patient also has acute kidney injury secondary to prerenal azotemia from dehydration. This was likely secondary to vomiting which she had last couple of days. Kidney function improved. Dehydration improved. We will repeat orthostats. This morning blood pressure was high, will stop the IV fluids and this will likely help bringing the blood pressure down. Please replete potassium. Echocardiogram results to follow. Can resume other home medications. Patient worked with physical therapy and they recommended rehabilitation. DVT px; Hep sq.
--- NOTE | 2018-06-01 11:02 | Discharge Summary ---
See Addendum Visit Information Visit Dates Admission Date: 05/31/18 Discharge Date: 06/04/2018 Hospital Course Course Attending Physician: Regulo Buckner MD Primary Care Physician: Tracey Patel MD Hospital Course: 72 y/o F with pmh sig for migraine, hypertension, hyperlipidemia, disc herniation, spinal stenosis, hypothyroidism, coronary artery disease/ peripheral vascular disease [on Plavix] and chronic back pain who presented to the emergency department on 05/31/2018 after a fall. Patient said that she was about to go downstairs. She apparently fell in her hallway which is on the upper level. She doesn't remember much but when she woke up she found herself on the floor. She stayed there for some time and finally alerted [facility]. EMS came and brought her to the emergency room. She does have some chronic back pain. She denies any chest pain, dizziness. She does mention that she had vomiting from last couple of days and was not able to eat or drink much. She denies having any diarrhea. She currently denies feeling nauseous or having any abdominal pain. She denies any urinary complaints, no dysuria. She did feel warm last couple of days. She is on chronic narcotics 2/2 to ch back pain. On presentation, vital signs were T 99.6, HR 96, RR 20, BP 139/82, saturating 97 % on room air. Laboratories hemoglobin 11.0, MCV 90, BUN 27, creatinine 2.3 (baseline 1.3) AST at 53, CK 1079, troponin less than 0.01. U tox was positive for opiates. Urinalysis shows 1015 WBCs and moderate leukocyte esterase. CT chest/abdomen/pelvis shows a right lower lobe opacification. CT head/spine was negative for any acute processes. She will be admitted to telemetry and treated for the following problems: 1. Fall, possible syncope 2. Normocytic anemia 3. Acute kidney injury 4. Abnormal urine analysis Fall, possible syncope: Patient is a very poor historian so it is unclear what occurred. It is possible that she passed out. She does have what appears to be a urinary tract infection which may have contributed. She may have also been dehydrated. Also she is on multiple pain medications Percocet, ibuprofen, fentanyl patch, Klonopin, zolpidem which might have contributed for her syncope and fall. She was admitted to telemetry. Telemetry monitoring was continued. She was positive for orthostatic hypotension. Fall and syncope possibly from orthostatic hypotension. She was given IV fluids and hydrated well. Serial sets of troponin and EKG were negative. EKG tracing showed sinus rhythm, sinus bradycardia with first-degree heart block, NC interval 0.22. EchoCardiogram showed Normal left ventricular size, wall thickness and systolic function with no obvious regional wall motion abnormalities although difficult visualization of anterolateral wall. Normal left ventricular diastolic filling pattern for age. The ejection fraction is visually estimated at 60 %. Acute kidney injury Patient presented with creatinine 2.3, after hydration creatinine improved to 1.1. Acute kidney injury most likely prerenal from dehydration. Rhabdomyolysis Patient presented with creatinine kinase elevation at the time of admission. She was given IV fluids at the rate of 100 mL per hour after which creatinine trended down. Abnormal urine analysis She was found to have leukocyte esterase and some WBC cells in her urine. However she couldn't provide much history regarding any urinary tract symptoms. She denies any fever or chills. Urine cultures were ordered which showed enterococcus. Given afebrile status and no leukocytosis she was monitored off from antibiotics hypertension continued on metoprolol chronic back pain, spinal stenosis * she was not given any Percocet in the hospital. * At the time of discharge changed her Percocet to 2 times daily as needed only. * Fentanyl patch was changed from 50 mcg to 25 mcg in the hospital and she was discharged on 25 mcg patch q. 3 days. Anxiety she was evaluated by our psychiatrist in the hospital. Jasonpin dose was reduced from 0.5 twice daily to 0.25 three times daily. Also psychiatrist recommended to slowly taper Klonopin. She needs outpatient psychiatric follow- up. Hypothyroidism given her low TSH at the time of admission levothyroxine dose was changed from 100 mcg to 88 mcg. Iron deficiency anemia Patient was found to have iron deficiency anemia with hemoglobin 11, low iron. She was started on iron sulfate. Outpatient records were checked. Not sure about her colonoscopy report. Given her anemia and recent weight loss outpatient gastroenterology referral was provided for cancer workup DVT prophylaxis with heparin Heart healthy diet Full code Allergies: Coded Allergies: Gadolinium-Containing Contrast Medi (Severe, CONTRAST DYE - ANAPHYLAXIS 02/21/18 ) Iodinated Contrast- Oral and IV Dye (Severe, CONTRAST DYE - ANAPHYLAXIS 02/21/18 ) Penicillins (Severe, ANAPHYLAXIS 04/02/16) shellfish derived (Mild, RASH 06/03/18) rash Uncoded Allergies: CONTRAST DYE (Severe, ANAPHYLAXIS 04/02/16) Disposition Summary Disposition Principal Diagnosis: Fall Syncope Acute kidney injury Rhabdomyolysis Additional Diagnosis: as above Discharge Disposition: SNF Discharge Instructions General Discharge Information Code Status: Full Code Patient's Diet: as tolerated Patient's Activity: Activity as tolerated Follow-Up Instructions/Appts: Follow-up with PCP in one week after discharge Follow up with aircraft pilot within 1 week after discharge Follow-up with psychiatrist in 1 week after discharge Medications at Discharge Discharge Medications: Stop taking the following medications: Levothyroxine Sodium (Levothyroxine Sodium) 100 MCG TABLET ORAL DAILY BEFORE BREAKFAST Qty = 90 Fentanyl (Fentanyl) 50 MCG/HOUR PATCH.TD72 On the skin Every 3 days Qty = 10 Clonazepam (Clonazepam) 0.5 MG TABLET ORAL TWICE DAILY Qty = 90 Ibuprofen (Ibuprofen) 600 MG TABLET ORAL EVERY 6 HOURS NEEDED as needed for pain Qty = 50 Zolpidem Tartrate (Ambien) 10 MG TABLET ORAL Every night as needed Qty = 30 Continue taking these medications: Atorvastatin Calcium (Atorvastatin Calcium) 40 MG TABLET 1 Tablet ORAL DAILY Qty = 90 Clopidogrel Bisulfate (Clopidogrel) 75 MG TABLET 1 Tablet ORAL DAILY Qty = 90 Lidocaine (Lidocaine) 5 % ADH..PATCH 1 Patch On the skin DAILY Qty = 30 Nortriptyline HCl (Pamelor) 50 MG CAPSULE 2 Capsule ORAL Every night Qty = 90 Esomeprazole (Nexium) 40 MG CAPSULE.DR 1 Capsule ORAL DAILY Qty = 90 Metoprolol Succinate (Metoprolol Succinate) 25 MG TAB 1 Tablet ORAL DAILY Qty = 90 Escitalopram Oxalate (Escitalopram Oxalate) 5 MG TABLET 1 Tablet ORAL DAILY Qty = 90 Topiramate (Topiramate) 100 MG TABLET 1 Tablet ORAL TWICE DAILY Qty = 180 Mupirocin (Mupirocin) 2 % OINT...G. 1 Application On the skin THREE TIMES DAILY Qty = 44 Instructions: apply to affected area(s) Guaifenesin/Dextromethorphan (Robitussin Cough-Chest Dm Liq) 100 MG-5 MG/5 ML LIQUID 5-10 Milliliters ORAL EVERY SIX HOURS NEEDED as needed for cough Qty = 240 Start taking the following new medications: Levothyroxine Sodium (Synthroid) 88 MCG TABLET 1 Tablet ORAL DAILY Qty = 30 No Refills Clonazepam (Clonazepam) 0.25 MG TAB.RAPDIS 1 Tablet ORAL THREE TIMES DAILY Qty = 90 No Refills Fentanyl (Duragesic) 25 MCG/HOUR PATCH.TD72 1 Patch On the skin Every 3 days as needed for PAIN Qty = 10 No Refills Ferrous Sulfate (Ferrous Sulfate) 325 MG (65 MG IRON) TABLET 1 Tablet ORAL DAILY Qty = 30 No Refills The following medications have been changed: Old: Hydrocodone/Acetaminophen (Hydrocodon-Acetaminoph 7.5-325) 7.5 MG-325 MG TABLET 1 Tablet ORAL 4 TIMES A DAY Qty = 120 New: Hydrocodone/Acetaminophen (Hydrocodon-Acetaminoph 7.5-325) 7.5 MG-325 MG TABLET 1 Tablet ORAL TWICE DAILY as needed for BACK PAIN Qty = 30 Copies To: Amanda PYLE,Tracey Hui
--- NOTE | 2018-06-01 11:06 | Patient Discharge Instructions ---
Discharge Instructions General Discharge Information You were seen/treated for: syncope BLAINE Special Instructions: f/u with PCP in one week after discharge f/u with PSYCHIATRIST in one week after discharge f/u with MILLING PLANER OPERATOR in one week after discharge Follow up with urologist in one week after discharge Needs blaader scan as she has urinary retention. Needs straight cath if she has urine retention more than 250-300ml. Diet Continue normal diet: Yes Activity Full Activity/No Limits: Yes Acute Coronary Syndrome Inclusion Criteria At DC or during hospital stay patient has or had the following: ACS DIAGNOSIS No Discharge Core Measures Meds if any: Prescribed or Continued at Discharge Meds if any: NOT Prescribed or Continued at Discharge Congestive Heart Failure Inclusion Criteria At DC or during hospital stay patient has or had the following: CHF DIAGNOSIS No Discharge Core Measures Meds if any: Prescribed or Continued at Discharge Meds if any: NOT Prescribed or Continued at Discharge Cerebrovascular accident Inclusion Criteria At DC or during hospital stay patient has or had the following: CVA/TIA Diagnosis No Discharge Core Measures Meds if any: Prescribed or Continued at Discharge Meds if any: NOT Prescribed or Continued at Discharge Venous thromboembolism Inclusion Criteria VTE Diagnosis No VTE Type NONE VTE Confirmed by (Test) NONE Discharge Core Measures - Per Current guidelines, there needs to be overlap - treatment for the first 5 days of Warfarin therapy. - If discharged on Warfarin prior to 5 days of - overlap therapy, the patient will need to be - assessed for post discharge needs including - *Post discharge parental anticoagulation - *Warfarin and/or parental anticoagulation education - *Follow up date to check INR post discharge At least 5 days overlap therapy as Inpatient No Meds if any: Prescribed or Continued at Discharge Note: Overlap Therapy is Warfarin and Anticoagulant Meds if any: NOT Prescribed or Continued at Discharge
[2018-06-01 14:55] VITALS: BP 166/70
[2018-06-01 21:51] VITALS: BP 148/98
[2018-06-02 06:50] VITALS: BP 140/78
--- NOTE | 2018-06-02 07:04 | PN- Housestaff ---
Crystal Jackson 06/02/18 0704: Subjective Follow-up For: Fall - possible syncope Normocytic Anemia Acute Kidney Injury Abnormal UA Tele-Events Since Last Visit: Patient is in sinus rhythm (97 heart rate) Subjective: Patient seen and examined at bedside morning. Patient was agitated and combative this morning and was put on soft restraints. No acute distress on examination afterwards. She denies any complaints at this time and has been tolerating diet with normal bowel movements. Patients brother was at bedside and further information on her care was taken. Patient admitted to excessive NSAID use at home that may have attributed to her kidney injury. Furthermore her last colonoscopy was more than 5 years ago with unknown results. Patient agreed to a psychiatric consultation for her anxiety and home medications. Review of Systems Constitutional: Denies: see HPI. Objective Last 24 Hrs of Vital Signs/I&O Vital Signs Date Time Temp Pulse Resp B/P B/P Pulse O2 O2 Flow FiO2 Mean Ox Delivery Rate 06/02 1020 82 140/78 06/02 0650 97.0 86 20 140/78 99 Room Air 06/01 2151 98.0 94 18 148/98 97 Room Air 06/01 1455 98.3 85 22 166/70 97 Room Air Intake & Output 06/02 1600 / 0800 06/02 0000 Intake Total 200 720 Output Total 300 300 Balance -100 420 Intake, IV 400 Intake, Oral 200 320 Output, Urine 300 300 Patient 111 lb Weight Physical Exam General Appearance: Alert, Cooperative, No Acute Distress, Patient was disoriented to place initially Skin: No Rashes, No Breakdown HEENT: Atraumatic, PERRLA, EOMI Neck: Supple, No JVD Cardiovascular: Regular Rate, Normal S1, Normal S2, No Murmurs Lungs: Clear to Auscultation, Normal Air Movement Abdomen: Normal Bowel Sounds, Soft, No Tenderness Neurological: Normal Speech, Strength at 5/5 X4 Ext, Normal Tone, Sensation Intact Extremities: No Clubbing, No Cyanosis, No Edema Vascular: Normal Pulses, Pulses Symmetrical Assessment/Plan Assessment: A/P: 72 y/o F with pmh sig for migraine, hypertension, disc herniation, spinal stenosis on chronic opiates, hypothyroidism admitted with a fall with possible syncope. Patient also has acute kidney injury secondary to prerenal azotemia from dehydration. This was likely secondary to vomiting which she had within hospital stay. Syncopal Episode -patient with BLAINE at admission; currently resolved to a Cr of 0.9 today -patient admitted to excessive NSAID use 4X daily on top of multiple pain medications including fentanyl and vicodin and anxiety medication clonazepam -patient has positive orthostats this morning -Follow Up ECHO (05/31) BLAINE -resolved creatinine down to 0.9 -patient no longer on fluids Abnormal UA: -Urine CX: 20,000 colonies ENTEROCOCCUS Delerium -agitated and combatitive this morning around 6000; resolving now; patient is now alert to person place and time; soft constraints to be DC -Psychiatry consult placed for patient in terms of her anxiety and medication ( clonazepam) agreed by the patient and her brother Hypothyroidism: -suppressed TSH on labs; Synthroid to be decresed to 88mcg Anemia: -low serum iron and TIBC; patients last colonoscopy 5 years ago; call PCP to get records Deconditioning: -Patient recommended STR Code Status: Full Code DVT Prophylaxis: Heparin SC Diet: Heart Healthy Diet Problem List: 1. Contusion of lower back and pelvis, initial encounter 2. Spinal stenosis of lumbar region 3. Fall due to stumbling 4. Fall 5. Multiple contusions Pain Ratin Pain Location: Right Hip Pain Goal: Pain 4 or less Pain Plan: As per pain pathway Tomorrow's Labs & Rationales: CBC BEP Orthostatic Vital signs DVT/Prophylaxis: pharmacological Discharge Plan Discharge Disposition: STR/PA Jeanna Allen 06/02/18 1049: Attending MD Review Statement Attending Statement Attending MD Statement: examined this patient, discuss w/resident/PA/CORPORATE TRAVEL CONSULTANT, agreed w/resident/PA/CORPORATE TRAVEL CONSULTANT, discussed with family, reviewed EMR data (avail), discussed with nursing, discussed with case mgmt Attending Assessment/Plan: Syncopal episode- pt with BLAINE at admission with cr of 2.3. Pt on questioning told that she was taking alleve 4 times a day on top of her fentanyl and vicodin and also is on clonazepam. BLAINE- resolved. Cr down to 0.9 today. Delerium - last night. Resolving now. Pt alert and oriented now. DC restraints. Brother is going to get her reading glasses. Hypothyroidism- TSH suppressed. will cut down on levothyroxine to 88mcg Anemia- low serum iron and TIBC. pt had colonoscopy 5 years ago . Will call PCP to get records and pt says she also had recent FOBT checked by PCP. Deconditioning- PT recommended STR. D/w pts brother at bedside the care plan. Pts brother feels that she has declined over the last 1 year and is less functional now.
[2018-06-02 07:28] LABS: ABSOLUTE BASOPHIL COUNT 0 /CUMM (0.0-0.2); ABSOLUTE EOSINOPHIL COUNT 0.3 /CUMM (0.0-0.7); ABSOLUTE GRANULOCYTE CT 4.3 /CUMM (1.4-6.5); ABSOLUTE LYMPH COUNT 2.5 /CUMM (1.2-3.4); ABSOLUTE MONOCYTE COUNT 0.7 /CUMM (0.10-0.60); BASOPHIL % 0.4 % (0.0-2.0); EOSINOPHIL % 3.8 % (0-5); GRANULOCYTE % 55.5 % (42.2-75.2); MEAN CORPUSCULAR HGB 29.8 PG (27.0-31.0); MEAN CORPUSCULAR HGB CONC 33.3 G/DL (33.0-37.0); MEAN CORPUSCULAR VOLUME 89.6 FL (81.0-99.0); MEAN PLATELET VOLUME 7.6 FL (7.4-10.4); PLATELET COUNT 248 /CUMM (130-400); RBC DISTRIBUTION WIDTH 13.2 % (11.5-14.5); RED BLOOD CELL CT 3.46 /CUMM (4.20-5.40); WHITE BLOOD CELL COUNT 7.8 /CUMM (4.8-10.8)
--- NOTE | 2018-06-02 12:34 | Cons- Psychiatry ---
Psychiatric Consult Date of Consult: 06/02/18 Reason for Consult: I was asked to see this 73-year-old female admitted following an episode of syncope regarding her anxiety. Clonazepam is being reduced and the patient had asked to see a psychiatrist. History of Present Illness: The patient is a 73-year-old female who was admitted 05/31 presenting after a fall and an apparent syncopal episode. The patient is anemic. She does not have a UTI. The patient is a poor historian and does not appear to recall having requested a psychiatric assessment. She reports that she has a history of anxiety. She knows that she takes clonazepam but says she takes it 4 times a day but has not been taking it correctly. She has been on this medication for 5 years per her report. She says that sometimes she takes too much of her medications and sometimes too little. Of note the patient is also on narcotics. The patient reports that at home she has been increasingly anxious and is having some difficulties with her memory/concentration. She uses her cell phone to remind her what day it is. She sometimes notices she has forgotten important events such as birthdays which is uncharacteristic of her. Appetite at home has been poor and the patient is under nourished. She is not suicidal or homicidal and there are no psychotic symptoms. Past psychiatric history:: The patient was diagnosed with an anxiety disorder in the early after her mother's . She was hospitalized in 1966 with depression. She is not in any psychiatric treatment currently. She is prescribed clonazepam 0.5 mg p.o. twice daily by her primary care doctor. Adherence is erratic. She has no history of suicide attempts or deliberate self -harm. Substance abuse history: Again the patient is a poor historian. She is vague around drug use in the but does have a history of alcohol dependence and was admitted at least once to [facility]. She has been sober since 1994. Past medical history: Hypertension, hypothyroidism, migraine headaches, spinal disc herniation, spinal stenosis. Personal history: The patient never and has no children. She lives alone in [place] [facility]. She reports that she has good friends who have visited her while she is in hospital. Her brother is also supportive although he lives in [place]. Allergies: Coded Allergies: Gadolinium-Containing Contrast Medi (Severe, CONTRAST DYE - ANAPHYLAXIS 02/21/18 ) Iodinated Contrast- Oral and IV Dye (Severe, CONTRAST DYE - ANAPHYLAXIS 02/21/18 ) Penicillins (Severe, ANAPHYLAXIS 04/02/16) Uncoded Allergies: CONTRAST DYE (Severe, ANAPHYLAXIS 04/02/16) Past History Past Medical History Neurological: migraine EENT: NONE Cardiovascular: hypertension Respiratory: NONE Gastrointestinal: NONE Hepatic: NONE Renal: NONE Musculoskeletal: disk herniation, spinal stenosis Psychiatric: NONE Endocrine: HYPOTHYROID Blood Disorders: NONE Cancer(s): NONE GUITAR MAKER HAND/Reproductive: NONE Past Surgical History Surgical History: non-contributory Psychiatric Treatment History Psych Treatment Psychiatric Treatment Yes Inpatient Treatment Yes Outpatient Treatment Yes Location of Treatment none current Reason for Treatment Anxiety/depression Dates of Treatment 1960s Response to Treatment Unclear Diagnosis: Generalized anxiety disorder by history Major depressive disorder by history Alcohol dependence in full sustained remission Risk Factors: chronic/serious med cond., high anxiety/distress Substance Use/Abuse History Drug Use/Abuse Substances Used/Abused Yes Substance Used/Abused Alcohol First Use unknown Last Used 1994 Substance Abuse Treatment Substance Abuse Treatment Past Substance Abuse [place] Yes Inpatient Treatment Yes Response to Treatment sober since 1994 Assessment/Plan Mental Status Orientation: Person, Place, Situation Affect: Anxious Neuro-vegetative: Appetite Decreased Mental Status Exam: Pale, cachectic 73-year-old female encountered lying in her hospital bed with blankets around her as she is cold. Pleasant and appropriate with good eye contact. Calm, appropriate. Speech slightly slurred, monotonous, low in volume. Mood is anxious with congruent affect. Patient is not suicidal or homicidal. Thought process is normal in tempo, stream and form. There are no delusions or obsessions. Attention and concentration are fair. There is no perceptual abnormality. Impulse control is good. Intelligence level is likely above average, use of language appropriate, fund of knowledge average. The patient has difficulties with recent memory. Insight is fair. Judgment fair. Lab Results: Lab Anion Gap 8 06/02/18 0658 BUN 15 mg/dL 06/02/18 0658 Carbon Dioxide 23 mmol/L 06/02/18 0658 Chloride 108 mmol/L H 06/02/18 0658 Creatinine 0.9 mg/dL 06/02/18 06 Estimated GFR > 60 ml/min 06/02/18 06 Potassium 4.2 mmol/L 06/02/18 0658 Sodium 139 mmol/L 06/02/18 0658 Hct 31.0 % L 06/02/18 0658 Hgb 10.3 G/DL L 06/02/18 0658 RBC 3.46 /CUMM L 06/02/18 0658 WBC 7.8 /CUMM 06/02/18 0658 Lab Free T4 1.82 ng/dL 05/31/18 0810 TSH < 0.015 uIU/mL L 05/31/18 0810 Diffential Diagnosis: -Generalized anxiety disorder on chronic benzodiazepine therapy with erratic adherence -Depressive disorder unspecified by history ; taking escitalopram 5 mg -Unspecified cognitive disorder, rule out neurocognitive disorder -Erratic medication adherence; patient is prescribed controlled substances -Hypothyroidism, TSH suppressed by levothyroxine Impression: 73-year-old female with a long history of anxiety who is been on benzodiazepines for at least 5 years. By her own admission she regularly either over or under uses her medication. Per OFFICE MACHINES TEACHER prescribed dosage appears to have been 0.5 mg p.o. 3 times a day. Agree with reducing benzodiazepine but suggest caution given long-term use. Suggest reducing to 0.25 mg p.o. 3 times a day and reduced slowly. Patient is also prescribed fentanyl and oxycodone. If the patient is to return home, she would benefit from visiting nurse services for medication administration. Thank you for consulting us on this patient. Psychiatry will sign off for now. Please feel free to contact us if we can be of any further assistance.
[2018-06-02 14:52] VITALS: BP 138/80
[2018-06-02] MEDS ORDERED: SYNTHROID88 MCG PO (15:41)
[2018-06-02] MEDS ORDERED: CLONAZEPAM0.25 M1 PO (15:41)
[2018-06-02 22:14] VITALS: BP 158/86
--- NOTE | 2018-06-03 07:00 | PN- Housestaff ---
Crystal Jackson 06/03/18 0700: Subjective Follow-up For: Fall - Possible Syncope Normocytic Anemia BLAINE Abnormal UA Tele-Events Since Last Visit: Possible Junctional rhythm, 69, QRS 0.08, NH variable Subjective: Patient seen and examined at bedside th morning. Patient is very sleepy and slow this morning as per assessment and nurse. Patient no longer on restraints. Patient now on hallway monitor and for discharge to [facility] tomorrow. Patient complains of difficulty urinating. Bladder scan was retained with 500mL of urine. Patient to be on straight cath protocol. She denies any chest pain, shortness of breath, or any further complaints at this time. Review of Systems Constitutional: Denies: see HPI. Objective Last 24 Hrs of Vital Signs/I&O Vital Signs Date Time Temp Pulse Resp B/P B/P Pulse O2 O2 Flow FiO2 Mean Ox Delivery Rate 06/03 1030 95 180/100 06/03 0717 97.9 82 20 140/88 90 Room Air 06/02 2214 98.4 94 16 158/86 97 06/02 1452 99.0 91 20 138/80 99 /02 1431 Room Air Intake & Output 06/03 1600 06/03 0800 06/03 0000 Intake Total 220 Output Total 600 100 Balance -600 220 -100 Intake, Oral 220 Output, Urine 600 100 Patient 109 lb 109 lb Weight Physical Exam General Appearance: Alert, Oriented X3, Cooperative, No Acute Distress HEENT: Atraumatic, PERRLA, EOMI Cardiovascular: Regular Rate, Normal S1, Normal S2, No Murmurs Lungs: Clear to Auscultation, Normal Air Movement Abdomen: Normal Bowel Sounds, Soft, No Tenderness Neurological: Normal Speech, Strength at 5/5 X4 Ext (strength 4/5 in upper/lower ), Normal Tone, Reflexes 2+ Extremities: No Clubbing, No Cyanosis, No Edema, Normal Pulses Vascular: Normal Pulses, Pulses Symmetrical Current Medications: Current Medications Sig/Pete Start time Last Medication Dose Route Stop Time Status Admin Acetaminophen 650 MG .STK-MED ONE 06/03 020 DC PO 06/03 020 Acetaminophen 650 MG Q6-PRN PRN 05/31 2000 AC 06/03 PO 0210 Atorvastatin Calcium 40 MG DAILY 05/31 09 AC 06/03 PO 1025 Clonazepam 0.25 MG TID 06/02 1400 AC 06/03 PO 06/09 1359 1031 Clonazepam 0.25 MG BID 05/31 1124 DC 06/02 PO 06/07 1123 1023 Clopidogrel Bisulfate 75 MG DAILY 05/31 0900 AC 06/03 PO 1025 Escitalopram Oxalate 5 MG DAILY 06/02 0903 AC 06/03 PO 1024 Fentanyl Citrate 25 MCG Q72H 05/31 1130 AC 05/31 TOP 1339 Ferrous Sulfate 325 MG DAILY 06/03 0953 AC PO Folic Acid 1 MG DAILY 05/31 0900 AC 06/03 PO 1024 Heparin Sodium 5,000 UNIT Q8H 06/02 0600 AC 06/02 (Porcine) SC 2209 Levothyroxine Sodium 0.088 MG DAILY AC 06/03 07 AC 06/03 PO 1024 Lidocaine 1 PAT DAILY@2100 05/31 2100 AC 06/02 EXT 2210 Metoprolol Succinate 25 MG DAILY 05/31 0900 AC 06/03 PO 1030 Nortriptyline HCl 100 MG QPM 06/01 2100 AC 06/02 PO 2215 Polyethylene Glycol 17 GM DAILY NEEDED PRN 06/02 1130 AC PO Senna/Docusate Sodium 2 TAB DAILY PRN 06/02 1130 AC PO Topiramate 100 MG BID 06/01 1026 AC 06/03 PO 1025 Assessment/Plan Assessment: A/P: 72 y/o F with pmh sig for migraine, hypertension, disc herniation, spinal stenosis on chronic opiates, hypothyroidism admitted with a fall with possible syncope. Patient also has acute kidney injury secondary to prerenal azotemia from dehydration. This was likely secondary to vomiting which she had within hospital stay. SYNCOPAL EPISODE -patients blood pressure at 180/100 reported in morning; will continue antihypertensive regimen and follow blood pressure -patient to have a follow up ECHO (05/31) -patients BLAINE has resolved -patient advised to follow up with primary care physician for multiple medications ABNORMAL UA -Urine CX: Enterococcus; not on antibiotics due to no significant UA results and asymptomatic -patient had urine retention today; with a bladder scan demonstrating 500mL; -on straight cath protocol q4 for now PSYCHIATRY -patient no longer agitated or on soft restraints -psychiatry consult placed to taper Clonopen 0.25 TID for outpatinet care HYPOTHYROIDISM -suppressed TSH on labs -Synthroid decreased to 88mcg ANEMIA: -low serum iron and TIBC; patients last colonoscopy 5 years ago -attempted to call PCP for records with no results; will need follow up anemia work up with GI DECONDITIONING: -patient recommended for STR NUTRITION -patient seen by nutrition consult' -appears to be cachetic; with poor intake and visible muscle waisting -advised to change diet to regular -Shellfish allergy reported WOUND CARE -patient seen by woundcare -Right Buttock Ulcer; tegaderm -Coccyx Ulcer; tegaderm Code Status: Full Code DVT Prophylaxis: Herparin SC Diet: Regular Diet Problem List: 1. Spinal stenosis of lumbar region 2. Fall due to stumbling 3. Renal failure 4. Fall Pain Ratin Pain Location: Right hip pain Pain Goal: Pain 4 or less Pain Plan: As per pain pathway Tomorrow's Labs & Rationales: N/A Jeanna Allen 06/03/18 1147: Attending MD Review Statement Attending Statement Attending MD Statement: examined this patient, discuss w/resident/PA/BUILDING OPERATOR, agreed w/resident/PA/BUILDING OPERATOR, discussed with family, reviewed EMR data (avail), discussed with nursing, discussed with case mgmt Attending Assessment/Plan: Anxiety- pt on clonazepam. d/w psych. being tapered off benzo. Anemia- chronic- Started on iron. Will need outpt workup with PCP for anemia. Low serum iron. Pt has poor nutrition intake . Will be dced to Rehab. Malnutrion- Protein calorie- will start on protein supplements with protein shakes. d/w pt and family at bedside. DC to STR once bed available. Will get bladder scan to make sure pt not retaining urine. stopped ambien. Decreased narcotics dosage.
[2018-06-03 07:17] VITALS: BP 140/88
[2018-06-03] MEDS ORDERED: DURAGESIC1 EACH TOP (09:59)
[2018-06-03] MEDS ORDERED: HYDROCODON-ACE1 EAC3 PO (09:59)
[2018-06-03] MEDS ORDERED: FERROUS SULFAT325 M3 PO (10:03)
[2018-06-03] MEDS ORDERED: AMBIEN10 M1 PO (10:04)
--- NOTE | 2018-06-03 15:29 | ECHOCARDIOGRAM REPORT ---
CRYSTAL ESCOBAR Age: 72 : 1945 Gender: F Exam Date: 05/31/2018 10:31 Exam Location: [address] Ht (in): 64 Wt (lb): 101 BSA: 1.43 BP: 138 / 76 Ordering Physician: Jessica Trinidad MD Referring Physician: Jessica Trinidad MD Technologist: Amber Ramos [facility] Room Number: 174-02 Indications: Rhythm: Sinus Technical Quality: fair. FINDINGS Left Ventricle Normal left ventricular size, wall thickness and systolic function with no obvious regional wall motion abnormalities although difficult visualization of anterolateral wall. Normal left ventricular diastolic filling pattern for age. The ejection fraction is visually estimated at 60 %. Right Ventricle The right ventricle is normal in size and function. Right Atrium The right atrium is normal in size. Left Atrium The left atrium is normal in size. The interatrial septum is intact. Mitral Valve There is mild mitral annular sclerosis. There is mild central mitral regurgitation. Aortic Valve Structurally normal aortic valve with mild sclerosis but no significant gradient or stenosis. There is no aortic regurgitation. Tricuspid Valve The tricuspid valve is normal in structure and function. There is mild tricuspid regurgitation. Pulmonary artery systolic pressure is mildly elevated, estimated at 30 mmHg. Pulmonic Valve Structurally normal pulmonic valve. There is trace pulmonic regurgitation. Pericardium Normal pericardium without effusion. No pleural effusion. Great Vessels Normal aortic root dimension. The aortic arch and great vessels are well seen and are normal. CONCLUSIONS Normal left ventricular size, wall thickness and systolic function with no obvious regional wall motion abnormalities although difficult visualization of anterolateral wall. Normal left ventricular diastolic filling pattern for age. The ejection fraction is visually estimated at 60 %. The left atrium is normal in size. There is mild mitral annular sclerosis. There is mild central mitral regurgitation. Structurally normal aortic valve with mild sclerosis but no significant gradient or stenosis. There is mild tricuspid regurgitation. Pulmonary artery systolic pressure is mildly elevated, estimated at 30 mmHg. There is trace pulmonic regurgitation. Normal pericardium without effusion. Normal aortic root dimension. Aguilar Schrader M.D. (Electronically Signed) Final Date: 01 June 2018 14:16 Amended: 02 June 2018 09:53 MEASUREMENTS (Male / Female) Normal Values 2D ECHO LV Diastolic Diameter PLAX 2.8 cm 4.2 - 5.9 / 3.9 - 5.3 cm LV Systolic Diameter PLAX 2.1 cm 2.1 - 4.0 cm LV Fractional Shortening PLAX 25.0 % 25 - 46 % LV Ejection Fraction 2D Teich 51.2 % IVS Diastolic Thickness 1.2 cm LVPW Diastolic Thickness 0.9 cm LV Relative Wall Thickness 0.8 LVOT Diameter 2.0 cm Aortic Root Diameter 3.0 cm LA Systolic Diameter LX 2.3 cm 3.0 - 4.0 / 2.7 - 3.8 cm DOPPLER AV Peak Velocity 130.0 cm/s AV Peak Gradient 6.8 mmHg LVOT Peak Velocity 94.8 cm/s LVOT Peak Gradient 3.6 mmHg AV Area Cont Eq pk 2.3 cm Mitral E Point Velocity 66.1 cm/s Mitral A Point Velocity 71.6 cm/s Mitral E to A Ratio 0.9 MV Deceleration Time 180.0 ms TR Peak Velocity 277.0 cm/s TR Peak Gradient 30.7 mmHg PV Peak Velocity 92.3 cm/s PV Peak Gradient 3.4 mmHg LV E' Lateral Velocity 14.5 cm/s Mitral E to LV E' Lateral Ratio 4.6 LV E' Septal Velocity 10.4 cm/s Mitral E to LV E' Septal Ratio 6.4
[2018-06-03 16:00] VITALS: BP 140/70
[2018-06-03 22:23] VITALS: BP 140/90
[2018-06-04 06:34] VITALS: BP 130/80
--- NOTE | 2018-06-04 08:01 | PN- Housestaff ---
Crystal Jackson 06/04/18 0801: Subjective Follow-up For: Fall/Syncope BLAINE Abnormal UA Tele-Events Since Last Visit: NSR, 87 HR Subjective: Patient seen and examined at bedside morning. Patient now on hallway monitor and for discharge to [facility] today. Patient no longer experiencing difficulty on urination. UA demonstrated trace bacteria. She denies any chest pain, shortness of breath, or any further complaints at this time. Patient is tolerating diet well and anxious to go home today. Review of Systems Constitutional: Denies: see HPI. Objective Last 24 Hrs of Vital Signs/I&O Vital Signs Date Time Temp Pulse Resp B/P B/P Pulse O2 O2 Flow FiO2 Mean Ox Delivery Rate 06/04 0853 92 130/80 06/04 0634 98.4 92 18 130/80 99 Room Air 06/03 2223 98.7 88 18 140/90 100 Room Air 06/03 1600 98.0 78 16 140/70 Intake & Output 06/04 1600 06/04 0800 06/04 0000 Intake Total 120 120 Output Total 400 950 Balance -280 -830 Intake, Oral 120 120 Output, Urine 400 950 Patient 103 lb Weight Weight Bed scale Measurement Method Physical Exam General Appearance: Alert, Oriented X3, Cooperative, No Acute Distress Skin: No Rashes (Cocyx and sacral ulcer) HEENT: Atraumatic, PERRLA, EOMI Neck: No JVD Cardiovascular: Regular Rate, Normal S1, Normal S2, No Murmurs Lungs: Clear to Auscultation, Normal Air Movement Abdomen: Normal Bowel Sounds, Soft, No Tenderness Neurological: Normal Speech, Strength at 5/5 X4 Ext, Normal Tone, Sensation Intact, Reflexes 2+ Extremities: No Clubbing, No Cyanosis, No Edema, Normal Pulses Vascular: Normal Pulses, Pulses Symmetrical Assessment/Plan Assessment: A/P: 72 y/o F with pmh sig for migraine, hypertension, disc herniation, spinal stenosis on chronic opiates, hypothyroidism admitted with a fall with possible syncope. Patient also has acute kidney injury secondary to prerenal azotemia from dehydration which has now resloved. Patient to go to [facility] today pending available bed. SYNCOPAL EPISODE * Patients blood pressure stable at 130/80 * ECHO results: Negative * BLAINE resolved; Cr: BUN: * Patient advised to follow up with PCP for multiple medications ABNORMAL UA/DYSURIA * Patient no longer complaining of dysuria; UA/Urine Cx were repeated (06/03) with trace bacteria and +LE; Pending Urine Cx PSYCHIATRY * No longer on restraints; sports information director * Clonopen tapering 0.25 TID for outpatient care HYPOTHYROIDISM * Suppressed TSH on labs * Synthroid decreased to 88mcg ANEMIA * Low serum iron and TIBC; last colonoscopy > 5 years ago * Attempted to call PCP with no results; patient needs to follow up with GI/PCP for further anemia workup DECONDITIONING * Patient recommended for STR pending available bed today NUTRITION * Nutrition evaluation consulted * Patient is in Mild Protein Malnutrition; underweight related to anxiety/poor intake with visible muscle wasting * Nutrition recommends changing diet to regular; will add ensure chocolate with meals, strawberry chobani yogurt with meals; provided education on high calorie/ high protein foods to promote weight gain * shellfish allergy reported * continue to follow diet WOUND CARE * Wounds present on admission (POA) * 1. Right knee; skin tear; 4x4 dressing/bandage * 2. Right Buttock & Coxxyx; Ulcer; Open dressing with barrier cream Code Status: Full Code DVT Prophylaxis: Heparin SC Problem List: 1. Fall 2. Spinal stenosis of lumbar region Pain Ratin Pain Location: Right hip and buttox Pain Goal: Pain 4 or less Pain Plan: As per pain pathway Tomorrow's Labs & Rationales: Patient for possible DC today DVT/Prophylaxis: pharmacological Discharge Plan Discharge Disposition: STR/NH Stable for Discharge? Yes Anticipated Discharge (Day): today If Discharged Today/In 24 Hrs: W-10/discharge paper done Regulo Buckner 06/04/18 1220: Attending MD Review Statement Attending Statement Attending MD Statement: examined this patient, discuss w/resident/PA/LOCK MAINTENANCE SUPERVISOR, agreed w/resident/PA/LOCK MAINTENANCE SUPERVISOR, discussed with family, reviewed EMR data (avail), discussed with nursing, discussed with case mgmt, reviewed images, amended to note Attending Assessment/Plan: No new complaints. Awaiting bed availability for rehab placemement. Medically and vitally stable for dsicharge.
[2018-06-04 18:00] VITALS: BP 144/90
[2018-06-04 21:34] VITALS: BP 180/104
--- NOTE | 2018-06-05 06:52 | PN- Housestaff ---
Crystal Jackson 06/05/18 0652: Subjective Follow-up For: Fall/Syncope BLAINE Anemia Abnormal UA Tele-Events Since Last Visit: NSR, 89 Subjective: Patient seen and examined at bedside this morning. Patient had a baldder scan overnight that retained 300mL of fluid. Recent bladder scan this morning was at 50mL. Patient complains of dysuria and urinary retention today. UA results were positive and cultures grew enteroccoccus. Patient to be started on Nitrofurantoin 100mg BID for 5 days. Patient has an available bed at [facility]. Anticipated discharge today 06/05. Otherwise, patient denies any chest pain, shortness of breath or palpitations. Patient tolerating diet. Review of Systems Constitutional: Denies: see HPI. Objective Last 24 Hrs of Vital Signs/I&O Vital Signs Date Time Temp Pulse Resp B/P B/P Pulse O2 O2 Flow FiO2 Mean Ox Delivery Rate 06/05 0955 98.8 91 18 156/98 07 0700 98.8 91 18 156/98 97 Room Air 06/04 2134 99.5 95 18 180/104 99 Room Air / 1800 99.7 94 20 144/90 96 Room Air Intake & Output 06/05 1600 07/05 0800 07/ 0000 Intake Total Output Total 300 100 Balance -300 -100 Output, Urine 300 100 Patient 240 lb Weight Weight Bed scale Measurement Method Physical Exam General Appearance: Alert, Oriented X3, Cooperative, No Acute Distress HEENT: Atraumatic, PERRLA, EOMI Neck: Supple Cardiovascular: Regular Rate, Normal S1, Normal S2, No Murmurs Lungs: Clear to Auscultation, Normal Air Movement Abdomen: Normal Bowel Sounds, Soft, No Tenderness Neurological: Normal Speech, Strength at 5/5 X4 Ext, Normal Tone, Sensation Intact, Cranial Nerves 3-12 NL, Reflexes 2+ Extremities: No Clubbing, No Cyanosis, No Edema Vascular: Normal Pulses, Pulses Symmetrical Current Medications: Current Medications Sig/Pete Start time Last Medication Dose Route Stop Time Status Admin Acetaminophen 650 MG .STK-MED ONE 06/04 2303 DC PO 06/04 2304 Acetaminophen 650 MG Q6-PRN PRN 05/31 2000 AC 06/04 PO 230 Atorvastatin Calcium 40 MG DAILY 05/31 09 AC 06/05 PO 0955 Calcium Carbonate 500 MG ONCE ONE 06/05 0200 DC 06/05 PO 06/05 0201 0215 Clonazepam 0.25 MG TID 06/02 1400 AC 06/05 PO 06/09 1359 0959 Clopidogrel Bisulfate 75 MG DAILY 05/31 0900 AC 06/05 PO 0955 Escitalopram Oxalate 5 MG DAILY 06/02 0903 AC 06/05 PO 0955 Fentanyl Citrate 25 MCG Q72H 05/31 1130 AC 06/03 TOP 1316 Ferrous Sulfate 325 MG DAILY 06/03 0953 AC 06/05 PO 0955 Folic Acid 1 MG DAILY 05/31 0900 AC 06/05 PO 0955 Heparin Sodium 5,000 UNIT Q8H 06/02 0600 AC 06/05 (Porcine) SC 0600 Levothyroxine Sodium 0.088 MG DAILY AC 06/03 0700 AC 06/05 PO 0600 Lidocaine 1 PAT DAILY@2100 05/31 2100 AC 06/04 EXT 2115 Metoprolol Succinate 25 MG DAILY 05/31 0900 AC 06/05 PO 0955 Nitrofurantoin 100 MG BID 06/05 0900 AC PO Nortriptyline HCl 100 MG QPM 06/01 2100 AC 06/04 PO 2113 Polyethylene Glycol 17 GM DAILY NEEDED PRN 06/02 1130 AC PO Senna/Docusate Sodium 2 TAB DAILY PRN 06/02 1130 AC 06/05 PO 0955 Topiramate 100 MG BID 06/01 1026 AC 06/05 PO 0955 Assessment/Plan Assessment: 72 y/o F with pmh sig for migraine, hypertension, disc herniation, spinal stenosis on chronic opiates, hypothyroidism admitted with a fall with possible syncope. Patient also has acute kidney injury secondary to prerenal azotemia from dehydration which has now resloved. Patient to go to [facility] today. 06/05: UA cx: enterococcus; positive symptoms of UTI; patient started on nitrofurantion 100mg BID which will be continued on discharge today. SYNCOPAL EPISODE * Patients blood pressure 156/98 most recently * ECHO results: Negative * BLAINE resolved * Patient advised to follow up with PCP for multiple medications ABNORMAL UA/DYSURIA * Patient no longer complaining of dysuria; * UA: positive * UA Cx: Enterococcus * Nitroforantion 100mg BID for 5 days started on 06/05. Will continue follow up care * Patient advised to have outpatient follow up urology assessment for urine retention * On admission patient had retained 500mL and 300mL on multiple bladder scans the past 2 days. Patient was kept on straight cath protocol at this time. Spoke to urology on her presentation and was advised she have outpatient work up. PSYCHIATRY * No longer on restraints; personnel monitor * Clonopen tapering 0.25 TID for outpatient care HYPOTHYROIDISM * Suppressed TSH on labs * Synthroid decreased to 88mcg ANEMIA * Low serum iron and TIBC; last colonoscopy > 5 years ago * Attempted to call PCP with no results; patient needs to follow up with GI/PCP for further anemia workup DECONDITIONING * Patient recommended for STR pending available bed today NUTRITION * Nutrition evaluation consulted * Patient is in Mild Protein Malnutrition; underweight related to anxiety/poor intake with visible muscle wasting * Nutrition recommends changing diet to regular; will add ensure chocolate with meals, strawberry chobani yogurt with meals; provided education on high calorie/ high protein foods to promote weight gain * shellfish allergy reported * continue to follow diet WOUND CARE * Wounds present on admission (POA) * 1. Right knee; skin tear; 4x4 dressing/bandage * 2. Right Buttock & Coxxyx; Ulcer; Open dressing with barrier cream Patient to STR today 06/05. Regular diet Code Status: Full Code DVT Prophylaxis: Heparin SC Problem List: 1. Fall 2. Spinal stenosis of lumbar region 3. Contusion of lower back and pelvis, initial encounter Pain Ratin Pain Location: N/A Pain Goal: Remain pain free Pain Plan: As per pain pathway Tomorrow's Labs & Rationales: Patient to STR today. DVT/Prophylaxis: pharmacological Discharge Plan Discharge Disposition: STR/NH Stable for Discharge? Yes Anticipated Discharge (Day): today If Discharged Today/In 24 Hrs: W-10/discharge paper done Jeanna Allen 06/05/18 1131: Attending MD Review Statement Attending Statement Attending MD Statement: examined this patient, discuss w/resident/PA/OIL REFINERY OPERATOR, agreed w/resident/PA/OIL REFINERY OPERATOR, reviewed EMR data (avail), discussed with nursing, discussed with case mgmt Attending Assessment/Plan: UTI with urine culture growing Enterococcus- started on nitrofurantoin for 5 days. Urinary retention- likely sec to polypharmacy- decreased her pain meds and benzos being tapered. planned dc to SNF with f/u with urology as an outpatient. see dc summary for more details. octavio pt the care plan.
[2018-06-05 07:00] VITALS: BP 156/98
[2018-06-05] MEDS ORDERED: NITROFURANTOIN100 M5 PO (10:46)
[2018-06-05 13:00] VITALS: BP 156/98
[2018-06-05 15:58] VITALS: BP 148/88
== END 2018-06-05 16:04 | DRG 683 ==
LOC: ERH 22:36 → ERHI 05-31 04:51 → 1NO 05-31 04:51 → ENRESERV 05-31 05:35 → EDBEDREQ 05-31 05:44 → 1NO 05-31 06:08 → ENPENDDIS 06-05 11:27 → 1NO 06-05 16:04
PROVIDERS: Pediatrics; Physical Medicine & Rehabilitation Pain Medicine
DX: N17.9 Acute kidney failure, unspecified (principal); E46 Unspecified protein-calorie malnutrition; N39.0 Urinary tract infection, site not specified; M62.82 Rhabdomyolysis; Z68.1 Body mass index [BMI] 19.9 or less, adult; M48.00 Spinal stenosis, site unspecified; E03.9 Hypothyroidism, unspecified; E86.0 Dehydration; F41.1 Generalized anxiety disorder; F32.9 Major depressive disorder, single episode, unspecified; Z91.14 Patient's other noncompliance with medication regimen; M54.9 Dorsalgia, unspecified; R55 Syncope and collapse; B95.2 Enterococcus as the cause of diseases classified elsewhere; L89.150 Pressure ulcer of sacral region, unstageable; S70.211A Abrasion, right hip, initial encounter; S80.211A Abrasion, right knee, initial encounter; W18.30XA Fall on same level, unspecified, initial encounter; Y92.002 Bathroom of unspecified non-institutional (private) residence as the place of occurrence of the external cause; Z88.0 Allergy status to penicillin; Z91.041 Radiographic dye allergy status; W18.11XA Fall from or off toilet without subsequent striking against object, initial encounter; Y92.231 Patient bathroom in hospital as the place of occurrence of the external cause; D50.9 Iron deficiency anemia, unspecified; L98.419 Non-pressure chronic ulcer of buttock with unspecified severity; S81.011A Laceration without foreign body, right knee, initial encounter
CPT/HCPCS: 1NSP; 84133; 84300; 36415; 36592; 73030-RT; 73070-RT; 73080-RT; 73501; 73562-LT; 73562-RT; 74176; 80307; 81001; 82436; 82570; 87086; 87147; 93005; 93010; 93306; 97110-GO; 97116-GO; 97161-GP; 97530-GO; G0480; J1644; J3490